=== PATIENT | male | born 1950 | race Caucasian/White ===

== ENCOUNTER 2016-10-24 09:27 | Day surgery (SDC) | payer BC ==
[2016-10-23 10:00] VITALS: BMI 26.6
[~2016-10-24 09:27] MED LIST: LACTATED RINGERS 1,000 ML IV SCH
[2016-10-24 10:01] VITALS: TEMP 97.2
[2016-10-24] MEDS ORDERED: LIDOCAINE 1% 20 ML VIAL (10MG/ML) FOR IV START INTRADERMA ONE (10:12)
[2016-10-24] MEDS ORDERED: LIDOCAINE 1% INJ 10MG/ML (20 ML MDV) ONE (10:56)
[2016-10-24] MEDS ORDERED: PROPOFOL 10 MG/ML 20 ML VIAL IV ONE (10:56)
[2016-10-24 11:36] VITALS: BP 128/79; PULSE 63; RESP 18
--- NOTE | 2016-10-24 11:56 | P.PCN ---
Date of Procedure: 10/24/16 Procedure(s) Performed: Procedure: Esophagogastroduodenoscopy and biopsy. Preoperative diagnosis: Abdominal pain and reflux. Postoperative diagnosis: 1. Small sliding hiatal hernia with no obvious esophagitis or complicated reflux disease. 2. Mild antral gastritis. 3. Multiple biopsies obtained from the duodenum, antrum and esophagus. Preparation and sedation: Was provided by anesthesia. Brief clinical history: The patient is a 66-year-old male who was evaluated in the office because of upper abdominal discomfort that he had for around 3 months. The pain would improve after eating. It was mostly felt in the hypogastric and periumbilical area. There is history of reflux and the patient was on PPI which was doubled with no improvement in his symptoms initially. For the last week or 2 he has been doing well. This evaluation was already scheduled to assess for peptic ulcer disease, complicated reflux disease or other pathology. Procedure: With the patient on his left lateral decubitus position and after informed consent and adequate sedation, I passed the Olympus-GIF 160 video upper endoscope through the cricopharyngeus down the esophagus. GE junction was around 38 cm from the incisors and there was a small around 1 cm sliding hiatal hernia. The esophagus did not show any obvious erosions, ulcers, strictures or Chester's esophagus. The endoscope was then passed into the stomach which was insufflated with air and inspected in detail including the retroflex view in the cardia. There was some mottling and erythema in the antrum but no ulcers or erosions. Pyloric channel, duodenal bulb, post bulbar area and descending duodenum appeared within normal limits. Because of his symptoms, I obtained biopsies from the duodenum, antrum and esophagus then the endoscope was withdrawn. The patient tolerated the procedure well. Plan: The patient was reassured. Will await biopsy results and make further plans based on his course and biopsy results. He will follow up with you as planned.
== END 2016-10-24 11:56 | disposition home or self-care (01) ==
LOC: ORWHC2ENDO 09:27
DX: K29.50 Unspecified chronic gastritis without bleeding (principal); K21.0 Gastro-esophageal reflux disease with esophagitis; K44.9 Diaphragmatic hernia without obstruction or gangrene; I10 Essential (primary) hypertension; E78.5 Hyperlipidemia, unspecified; Z79.899 Other long term (current) drug therapy
CPT/HCPCS: 88305; 88342; 43239; J2001; J2704

== ENCOUNTER → 2018-01-02 | Outpatient (CLI) | payer BC ==
[2018-01-02 09:51] LABS: ALT 46 U/L (21-72); AST 35 U/L (17-59); Cholesterol 172 mg/dL (<200); Creatine Kinase 35 U/L (55-170); HDL Cholesterol 58 mg/dL (40-60); LDL Cholesterol,Calculated 99 mg/dL (0-99); Triglycerides 77 mg/dL (<150)
[2018-01-02 10:37] LABS: Prostate Specific Antigen <0.10 ng/mL (0.00-4.00)
== END | disposition home or self-care (01) ==
LOC: LABWHC1 08:31
PROVIDERS: ATTEND Urology
DX: C61 Malignant neoplasm of prostate (principal); E78.5 Hyperlipidemia, unspecified
CPT/HCPCS: 36415; 80061; 82550; 84153; 84450; 84460

== ENCOUNTER 2018-11-12 12:18 | Day surgery (SDC) | payer BC ==
[2018-11-11 09:52] VITALS: BMI 26.6
[~2018-11-12 12:18] MED LIST changes: +LIDOCAINE 1% 20 ML VIAL (10MG/ML) FOR IV START INTRADERMA PRN
[2018-11-12] MEDS ORDERED: MIDAZOLAM (PF) 2 MG/2 ML VIAL IV ONE (13:25)
[2018-11-12] MEDS ORDERED: PROPOFOL 10 MG/ML 20 ML VIAL IV ONE (13:31)
[2018-11-12 13:32] VITALS: TEMP 97.5
--- NOTE | 2018-11-12 13:58 | P.PCN ---
Date of Procedure: 11/12/18 Procedure(s) Performed: Procedure: Total colonoscopy. Preoperative diagnosis: History of polyps and family history of colon cancer. Postoperative diagnosis: Mild sigmoid diverticulosis but no evidence of acute diverticulitis strictures polyps or cancer. Preparation: HalfLytely prep. Sedation: Was provided by anesthesia. Brief clinical history: The patient is a 68-year-old male who has history of polyps and family history of colon cancer. His last evaluation was in 2013. He has no bowel complaints of bleeding or anemia. Had prostate surgery since his last examination for prostate cancer. Procedure: With the patient on his left lateral decubitus position and after informed consent, the perianal area was inspected and it did not show any fissures or fistulas. There were no masses felt on digital rectal examination. The Olympus CFH 190 L video colonoscope was then inserted in the rectum in the usual fashion and advanced to the cecum. There were few diverticular orifices seen scattered in the sigmoid but I saw no evidence of acute diverticulitis, strictures, polyps or tumors. I retroflexed the endoscope in the rectum then the endoscope was withdrawn. The patient tolerated the procedure well. Plan: The patient was reassured, discussed dietary measures. We will recommend follow-up exam in 5 years. He will follow-up with you as planned.
[2018-11-12 14:09] VITALS: RESP 16
[2018-11-12 14:25] VITALS: BP 137/78; PULSE 62
== END 2018-11-12 14:32 | disposition home or self-care (01) ==
LOC: ORWHC2ENDO 12:18
DX: Z12.11 Encounter for screening for malignant neoplasm of colon (principal); K57.30 Diverticulosis of large intestine without perforation or abscess without bleeding; K21.9 Gastro-esophageal reflux disease without esophagitis; I10 Essential (primary) hypertension; E78.5 Hyperlipidemia, unspecified; F39 Unspecified mood [affective] disorder; Z86.010 Personal history of colon polyps; Z85.46 Personal history of malignant neoplasm of prostate; Z80.0 Family history of malignant neoplasm of digestive organs; Z79.82 Long term (current) use of aspirin; Z79.899 Other long term (current) drug therapy
CPT/HCPCS: G0105; J2704; J2250; 45378

== ENCOUNTER → 2019-01-06 | Outpatient (CLI) | payer BC | END | disposition home or self-care (01) | LOC: LABWHC1 09:37 | PROVIDERS: ATTEND Urology | DX: C61 Malignant neoplasm of prostate (principal) | CPT/HCPCS: 36415; 84153 ==

== ENCOUNTER → 2019-08-13 | Outpatient (CLI) | payer MEDICARE ==
--- NOTE | 2019-08-13 16:54 | MR ---
EXAMINATION TYPE: MR lumbar spine wo/w con DATE OF EXAM: 08/13/2019 COMPARISON: NONE HISTORY: 68-year-old male Low back pain Technique: Multiplanar, multisequence images of the lumbar spine were obtained before and after admin istration of 7.5 mL intravenous Gadavist gadolinium contrast. FINDINGS: Vertebral body heights are preserved. Trace grade 1 retrolisthesis at L3-L4 and L4-L5 secondary to hypertrophic facet arthropathy. No suspicious bone marrow replacement. Moderate multilevel degenerative disc disease with desiccated and mildly narrowed disks and diffuse d isc bulging. Posterior enhancing annular fissures are present at L2-L3 and L3-L4. No prevertebral or paravertebral soft tissue abnormality. Conus medullaris is normal. At T12-L1, no spinal canal and neural foraminal stenosis. At L1-L2, no spinal canal or foraminal stenosis. At L2-L3, mild bulging disc and mild facet degenerative change. There is mild impression onto the melina tral thecal sac without significant spinal canal stenosis. Minimal bilateral inferior neuroforaminal narrowing. At L3-L4, facet arthropathy with bulging disc and trace grade 1 retrolisthesis. Very mild narrowing o f the spinal canal and mild right and moderate left neuroforaminal stenosis. At L4-L5, facet arthropathy with trace grade 1 retrolisthesis and bulging disc. There is mild narrowi ng of the spinal canal with moderate bilateral neural foraminal stenosis. Disc material likely abuts the bilateral traversing L5 nerve roots. At L5-S1, bulging disc with ligamentum flavum thickening and facet arthropathy. There is moderate to severe right neural foraminal stenosis. No spinal canal stenosis. No abnormal enhancement within the spinal canal. IMPRESSION: 1. Moderate multilevel degenerative disc disease with desiccated, mildly narrowed, and bulging discs. Posterior annular fissures at L2-L3 and L3-L4. 2. Facet arthropathy with degenerative trace grade 1 retrolistheses at L3-L4 and L4-L5. 3. Mild narrowing of the spinal canal at L3-L4 and L4-L5. At L4-L5, disc material likely abuts the bi lateral traversing L5 nerve roots. 4. Additionally at L4-L5, there is moderate bilateral neuroforaminal stenoses. 5. At L5-S1, there is moderate to severe right neuroforaminal stenosis.
== END | disposition home or self-care (01) ==
LOC: RADMRIMAIN 13:23
PROVIDERS: ATTEND Orthopaedic Surgery
DX: M48.061 Spinal stenosis, lumbar region without neurogenic claudication (principal); M48.07 Spinal stenosis, lumbosacral region; M51.26 Other intervertebral disc displacement, lumbar region; M43.16 Spondylolisthesis, lumbar region; M51.36 Other intervertebral disc degeneration, lumbar region; M47.816 Spondylosis without myelopathy or radiculopathy, lumbar region
CPT/HCPCS: 72158; A9585

== ENCOUNTER → 2020-01-18 | Outpatient (CLI) | payer MEDICARE, OTHER | END | disposition home or self-care (01) | LOC: LABWHC1 13:37 | PROVIDERS: ATTEND Urology | DX: C61 Malignant neoplasm of prostate (principal) | CPT/HCPCS: 36415; 84153 ==

== ENCOUNTER 2020-03-21 09:35 | Day surgery (SDC) | payer MEDICARE, OTHER ==
[2020-03-17 15:14] VITALS: BMI 26.9
[~2020-03-21 09:35] MED LIST changes: -LIDOCAINE 1% 20 ML VIAL (10MG/ML) FOR IV START INTRADERMA PRN
[2020-03-21 09:51] VITALS: RESP 16; TEMP 97.1
[2020-03-21] MEDS ORDERED: fentaNYL (PF) 50 MCG/ML 2 ML AMP ONE (10:40)
[2020-03-21] MEDS ORDERED: MIDAZOLAM 2 MG/2 ML VIAL ONE (10:40)
[2020-03-21] MEDS ORDERED: methylPREDNISolone ACETATE 40 MG/ML 1 ML VIAL ONE (10:40)
[2020-03-21] MEDS ORDERED: IOPAMIDOL M200 10 ML VIAL ONE (10:40)
--- NOTE | 2020-03-21 10:58 | P.PCN ---
Date of Procedure: 03/21/20 Procedure(s) Performed: PREOPERATIVE DIAGNOSIS:1- Lumbar radiculopathy . 2-lumbar foraminal stenosis. 3- lumbar spondylosis with lumbar facet arthropathy POSTOPERATIVE DIAGNOSIS: Same as preoperative diagnoses. PROCEDURE 1. Transforaminal epidural steroid injection under fluoroscopic guidance at right L4-5 level. And L5-S1 levels (Fluoroscopy images stored on file in the radiology Department ) 2. Lumbar epidurogram : ANESTHESIA: Local with 1% lidocaine 3 ml , moderate sedation with intravenous Versed 1 mg and fentanyle 50 micrograms EBL: Minimal PROCEDURE INDICATION: The patient with low back pain and radiculopathy symptoms unresponsive to conservative treatment. PROCEDURE DESCRIPTION / TECHNIQUE: The patient was seen and identified in the preoperative area. Risks, benefits, complications, and alternatives were discussed with the patient. The patient agreed to proceed with the procedure and signed the consent. IV was started, and vital signs were stable. Patient was taken to the OR and time out was completed. The patient was placed in the prone position on procedure table and a pillow was placed under the abdomen to reduce lumbar lordosis. The lumbosacral area was prepped and draped in the usual sterile fashion. Critical pause was taken. Vital signs were closely monitored during the procedure. Conscious sedation was used during the procedure to decrease patient s anxiety. Using oblique fluoroscopy, the chin of the ``[place] dog at right L4-5 level was identified, and the skin and deeper tissues just below was localized with 1% lidocaine. Subsequently, a 22-gauge 3.5-inch spinal needle was advanced under a tunneled view fluoroscopic guidance just underneath the chin of the `[place] dog at the right L4-5 Under lateral fluoroscopy, the needle was then advanced to the posterior border of the interforaminal space. After negative aspiration of CSF and blood and with no paresthesias, 1 mL Isovue 200 contrast dye was injected excellent epidurogram and outlining of the nerve root Subsequently, 3 mL of block solution containing 30 mg Depo-Medrol and 2 mL of 0.9% normal saline PF was injected. Needle was removed and the same procedure was repeated at the right L5-S1 level (s). At the end of the procedure, skin was cleansed, and bandages were applied. COMPLICATIONS:none DISPOSITION / PLANS: The patient was placed in a supine position and transferred to the recovery area in a stable condition for observation. There was no evidence of lower extremity motor or sensory deficit after the procedure. Patient was discharged from the recovery room after meeting discharge criteria. Home discharge instructions were given to the patient by the staff. The patient was reexamined prior to discharge.
[2020-03-21] MEDS ORDERED: IV FLUID CONTINUATION 1,000 ML IV ONE (11:03)
[2020-03-21 11:22] VITALS: BP 127/76; PULSE 64
--- NOTE | 2020-03-21 11:33 | FL ---
EXAMINATION TYPE: FL guided pain mgmt statistic DATE OF EXAM: 03/21/2020 HISTORY: Fluoroscopy time 4 seconds of fluoroscopy provided. IMPRESSION: 1. Fluoroscopy time.
== END 2020-03-21 11:39 | disposition home or self-care (01) ==
LOC: ORPAIN 09:35
PROVIDERS: ATTEND Specialist
DX: M47.26 Other spondylosis with radiculopathy, lumbar region (principal); M48.061 Spinal stenosis, lumbar region without neurogenic claudication
CPT/HCPCS: 64483; 64484; J2250; J1030; J3010; Q9966; 99152

== ENCOUNTER → 2020-04-11 | Day surgery (SDC) | payer MEDICARE, OTHER ==
[2020-04-10 09:59] VITALS: BMI 26.6
[~2020-04-11] MED LIST changes: +DEXAMETHASONE SOD PHOSPHATE 10 MG/ML 1 ML VIAL ONE; +IOPAMIDOL M200 10 ML VIAL ONE
[2020-04-11 08:36] VITALS: TEMP 96.6
--- NOTE | 2020-04-11 08:52 | P.PCN ---
Date of Procedure: 04/11/20 Description of Procedure: PREOPERATIVE DIAGNOSIS: Lumbar radiculopathy POSTOPERATIVE DIAGNOSIS: Lumbar radiculopathy PROCEDURE 1. Transforaminal epidural steroid injection under fluoroscopic guidance L5-S1 on the right 2. Lumbar epidurogram IMAGING Fluoroscopy was used, images where saved to the medical record ANESTHESIA: Local with 1% lidocaine 5 ml PROCEDURE DESCRIPTION / TECHNIQUE: The patient was seen and identified in the preoperative area. Risks, benefits, complications, and alternatives were discussed with the patient. The patient agreed to proceed with the procedure and signed the consent, vital signs were stable prior to the procedure. Patient was taken to the OR and time out was completed. The patient was placed in the prone position on procedure table and a pillow was placed under the abdomen to reduce lumbar lordosis. The lumbosacral area was prepped and draped in the usual sterile fashion. Vital signs were closely monitored during the procedure. Conscious sedation was used. Using oblique fluoroscopy, the chin of the "[place] dog" at the pedicle and the skin and deeper tissues just below was localized with 1% lidocaine. Subsequently, a 25-gauge 3.5-inch spinal needle was advanced under a tunneled view fluoroscopic guidance just underneath the chin of the "[place] dog". Under lateral fluoroscopy, the needle was then advanced to the posterior border interforaminal space. After negative aspiration of CSF and blood and with no paresthesias, 1 mL of Omnipaque-240 contrast dye was injected excellent epidurogram. Subsequently, a solution totalling 2ml of dexamethasone and PFNS was injected after negative aspiration (total of 10mg of dexamethasone was used). The needle was removed intact. COMPLICATIONS: None DISPOSITION: The patient was placed in a supine position and transferred to the recovery area in a stable condition for observation. There was no evidence of lower extremity motor or sensory deficit after the procedure. Patient was discharged from the recovery room after meeting discharge criteria. Home discharge instructions were given to the patient by the staff. The patient was reexamined prior to discharge. Follow-up in the office as needed as pain is under much better control.
[2020-04-11 08:57] VITALS: RESP 17
[2020-04-11 09:08] VITALS: BP 110/67; PULSE 66
--- NOTE | 2020-04-11 15:00 | FL ---
EXAMINATION TYPE: FL guided pain mgmt statistic DATE OF EXAM: 04/11/2020 CLINICAL HISTORY: Low back pain. TECHNIQUE: Fluoroscopy. COMPARISON: None. FINDINGS: Fluoroscopic guidance was provided during pain relief procedure performed by Dr. Enciso . A total of 9 seconds of fluoroscopic time was utilized during the procedure and 1 spot images are a cquired. Single image acquired shows needle localization at the upper sacral level off the midline. IMPRESSION: As Above.
== END ==
LOC: ORPAIN 08:21
PROVIDERS: ATTEND Hospitalist
DX: M54.16 Radiculopathy, lumbar region (principal)
CPT/HCPCS: 64483; J1100; Q9966

== ENCOUNTER 2020-06-30 10:02 | Day surgery (SDC) | payer MEDICARE, OTHER ==
[2020-06-27 12:15] VITALS: BMI 26.6
[2020-06-30 10:58] VITALS: TEMP 97
[2020-06-30] MEDS: LACTATED RINGERS 1,000 ML IV SCH ×2 (10:59→11:02)
[2020-06-30] MEDS ORDERED: methylPREDNISolone ACETATE 40 MG/ML 1 ML VIAL ONE (11:05)
[2020-06-30] MEDS ORDERED: IOPAMIDOL M200 10 ML VIAL ONE (11:05)
--- NOTE | 2020-06-30 11:21 | P.PCN ---
Date of Procedure: 06/30/20 Procedure(s) Performed: PREOPERATIVE DIAGNOSIS:1- Lumbar radiculopathy . 2-lumbar foraminal stenosis. 3- lumbar spondylosis with lumbar facet arthropathy POSTOPERATIVE DIAGNOSIS: Same as preoperative diagnoses. PROCEDURE 1. Transforaminal epidural steroid injection under fluoroscopic guidance at right L4-5 level. And L5-S1 levels (Fluoroscopy images stored on file in the radiology Department ) 2. Lumbar epidurogram : ANESTHESIA: Local with 1% lidocaine 3 ml only EBL: Minimal PROCEDURE INDICATION: The patient with low back pain and radiculopathy symptoms unresponsive to conservative treatment. PROCEDURE DESCRIPTION / TECHNIQUE: The patient was seen and identified in the preoperative area. Risks, benefits, complications, and alternatives were discussed with the patient. The patient agreed to proceed with the procedure and signed the consent. IV was started, and vital signs were stable. Patient was taken to the OR and time out was completed. The patient was placed in the prone position on procedure table and a pillow was placed under the abdomen to reduce lumbar lordosis. The lumbosacral area was prepped and draped in the usual sterile fashion. Critical pause was taken. Vital signs were closely monitored during the procedure. Using oblique fluoroscopy, the chin of the ``[place] dog at right L4-5 level was identified, and the skin and deeper tissues just below was localized with 1% lidocaine. Subsequently, a 22-gauge 3.5-inch spinal needle was advanced under a tunneled view fluoroscopic guidance just underneath the chin of the ``[place] dog at the right L4-5 Under lateral fluoroscopy, the needle was then advanced to the posterior border of the interforaminal space. After negative aspiration of CSF and blood and with no paresthesias, 1 mL Isovue 200 contrast dye was injected excellent epidurogram and outlining of the nerve root Subsequently, 3 mL of block solution containing 40 mg Depo-Medrol and 2 mL of 0.9% normal saline PF was injected. Needle was removed and the same procedure was repeated at the right L5-S1 level (s). At the end of the procedure, skin was cleansed, and bandages were applied. COMPLICATIONS:none DISPOSITION / PLANS: The patient was placed in a supine position and transferred to the recovery area in a stable condition for observation. There was no evidence of lower extremity motor or sensory deficit after the procedure. Patient was discharged from the recovery room after meeting discharge criteria. Home discharge instructions were given to the patient by the staff. The patient was reexamined prior to discharge.
[2020-06-30] MEDS ORDERED: IV FLUID CONTINUATION 750 ML IV ONE (11:29)
[2020-06-30] MEDS ORDERED: LACTATED RINGERS 750 ML IV ONE (11:29)
[2020-06-30 11:32] VITALS: RESP 16
[2020-06-30 11:46] VITALS: BP 133/76; PULSE 67
--- NOTE | 2020-06-30 12:00 | FL ---
Fluoroscopy HISTORY: Pain 6 seconds fluoroscopy time supplied to the referring clinician. 2 intraoperative C-arm images docume nt the procedure. See dictated report from anesthesia.
== END 2020-06-30 12:09 | disposition home or self-care (01) ==
LOC: ORPAIN 10:02
PROVIDERS: ATTEND Specialist
DX: M47.26 Other spondylosis with radiculopathy, lumbar region (principal); M48.061 Spinal stenosis, lumbar region without neurogenic claudication
CPT/HCPCS: 64483; 64484; J1030; Q9966

== ENCOUNTER 2020-09-15 08:47 | Day surgery (SDC) | payer MEDICARE, OTHER ==
[2020-09-12 11:56] VITALS: BMI 26.6
[~2020-09-15 08:47] MED LIST changes: -DEXAMETHASONE SOD PHOSPHATE 10 MG/ML 1 ML VIAL ONE; -IOPAMIDOL M200 10 ML VIAL ONE
[2020-09-15 09:12] VITALS: RESP 16; TEMP 97
[2020-09-15] MEDS ORDERED: LIDOCAINE 1% (10MG/ML) FOR IV START INTRADERMA ONE (09:18)
[2020-09-15] MEDS ORDERED: ONDANSETRON 4 MG/2 ML VIAL ONE (09:22)
[2020-09-15] MEDS ORDERED: PROPOFOL 10 MG/ML 20 ML VIAL IV ONE (09:41)
--- NOTE | 2020-09-15 09:54 | P.PCN ---
Date of Procedure: 09/15/20 Procedure(s) Performed: BRIEF HISTORY: Patient is a 69-year-old, pleasant, white male scheduled for an upper endoscopy as a part of evaluation of epigastric pain for the last 2 months duration. Symptoms are worse with eating and lasts for a few minutes. He has long-standing history of GERD and has been on Prilosec 20 mg daily and recently was increased to 20 mg twice daily with no help. His and scheduled for an upper endoscopy to evaluate further. PROCEDURE PERFORMED: Esophagogastroduodenoscopy with biopsy. PREOPERATIVE DIAGNOSIS: GERD/epigastric pain. IV sedation per anesthesia. PROCEDURE: After informed consent was obtained, the patient was brought into the endoscopy unit. IV sedation was administered by Anesthesia under continuous monitoring. Initially the Olympus GIF-140 video endoscope was inserted into the mouth. Esophagus intubated without any difficulty. It was gradually advanced into the stomach and duodenum and carefully examined. The bulb and the second part of the duodenum appeared normal. The scope at this time was withdrawn to the stomach, adequately insufflated with air, and upon careful examination, mucosa of the antrum, had a 5 limited antral ulcer which was biopsied. The body, cardia and the fundus appeared normal. The scope was then withdrawn into the esophagus. The GE junction was located at 39 cm from the incisors. Small to moderate size hiatal hernia noted. There were 2 superficial erosions consistent with LA grade a reflux esophagitis. The rest of the esophagus appeared and the patient tolerated the procedure well. IMPRESSION: 1. 5 mm superficial antral ulcer. 2. 2 superficial erosions at the GE junction consistent with LA grade A reflux esophagitis. 3. Small to moderate size hiatal hernia RECOMMENDATIONS: The findings of this examination were discussed with the patient as well as his family. He was advised to follow with the biopsy results. In the meantime he will be given a trial of Carafate 1 g 4 times daily before each meal and at bedtime and he will continue with omeprazole 20 mg daily. If he has no improvement in his symptoms and for which she was advised to follow up in office.
[2020-09-15 10:29] VITALS: BP 124/81; PULSE 65
== END 2020-09-15 10:58 | disposition home or self-care (01) ==
LOC: ORWHC2ENDO 08:47
PROVIDERS: ATTEND Internal Medicine Gastroenterology
DX: K25.9 Gastric ulcer, unspecified as acute or chronic, without hemorrhage or perforation (principal); K29.50 Unspecified chronic gastritis without bleeding; K21.9 Gastro-esophageal reflux disease without esophagitis; K44.9 Diaphragmatic hernia without obstruction or gangrene; K22.10 Ulcer of esophagus without bleeding; I10 Essential (primary) hypertension; E78.5 Hyperlipidemia, unspecified; M54.9 Dorsalgia, unspecified; Z85.46 Personal history of malignant neoplasm of prostate; Z90.79 Acquired absence of other genital organ(s); Z98.49 Cataract extraction status, unspecified eye; K00.0 Anodontia; Z79.899 Other long term (current) drug therapy
CPT/HCPCS: 88305; 88342; 43239; J2405; J2704

== ENCOUNTER → 2021-01-31 | Outpatient (CLI) | payer MEDICARE, OTHER ==
[2021-01-31 18:26] LABS: ALT 32 U/L (10-49); AST 30 U/L (14-35); Chol/HDL Ratio 2.44; Cholesterol 190 mg/dL (0-200)
[2021-01-31 18:54] LABS: Prostate Specific Antigen <0.1 ng/mL (0.0-6.5)
== END | disposition home or self-care (01) ==
LOC: LABWHC1 09:03
PROVIDERS: ATTEND Internal Medicine Interventional Cardiology
DX: C61 Malignant neoplasm of prostate (principal); E78.2 Mixed hyperlipidemia
CPT/HCPCS: 36415; 80061; 84153; 84450; 84460

== ENCOUNTER → 2021-03-14 | Outpatient (CLI) | payer MEDICARE, OTHER | END | disposition home or self-care (01) | LOC: LABWHC1 16:29 | PROVIDERS: ATTEND Internal Medicine Interventional Cardiology | DX: E03.9 Hypothyroidism, unspecified (principal) | CPT/HCPCS: 36415; 84443 ==

== ENCOUNTER → 2021-04-11 | Outpatient (CLI) | payer MEDICARE, OTHER ==
--- NOTE | 2021-04-11 16:22 | MR ---
EXAMINATION TYPE: MR knee LT wo con DATE OF EXAM: 04/11/2021 COMPARISON: Plain film 02/22/2020 HISTORY: Left knee pain TECHNIQUE: Multiplanar, multisequence imaging of the left knee is performed without IV contrast. FINDINGS: MEDIAL MENISCUS: Posterior horn of the medial meniscus shows abnormal increased signal extending to t he articular surface, somewhat truncated appearance is present on sagittal image #23 and 22. Posterio r to the meniscus there are some T2 bright foci likely representing meniscal cysts or ganglion LATERAL MENISCUS: Anterior and posterior horns are intact without tear. CRUCIATE LIGAMENTS: The anterior and posterior cruciate ligaments are intact and unremarkable. COLLATERAL LIGAMENTS: Popliteus tendon shows some increased signal near its origin, there may be stra in or partial tear, no evident complete tear of the collateral ligaments. EXTENSOR MECHANISM: Intact EFFUSION: There is a small joint effusion POPLITEAL CYST: Semimembranosus gastrocnemius cyst is present measuring 1.4 x 1.3 x 3.9 cm. TRICOMPARTMENT SPACES: Maintained CARTILAGE: Grade 2 to grade III chondromalacia present in the medial compartment BONE MARROW SIGNAL: No focal abnormal marrow signal is appreciated. OTHER: Marginal spurring present at the patellofemoral joint. IMPRESSION: There is osteoarthritis with probable degenerative tear of the posterior horn medial meniscus. 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
== END | disposition home or self-care (01) ==
LOC: RADMRIMAIN 10:58
PROVIDERS: ATTEND Orthopaedic Surgery
DX: M17.12 Unilateral primary osteoarthritis, left knee (principal)

== ENCOUNTER → 2021-05-14 | Outpatient (CLI) | payer MEDICARE, OTHER ==
[2021-05-14 12:53] LABS: Basophils # (A) 0.1 k/uL (0-0.2); Basophils % (A) 1 %; Eosinophils # (A) 0.2 k/uL (0-0.7); Eosinophils % (A) 3 %; HCT 36.9 % (39.0-53.0); HGB 12.8 gm/dL (13.0-17.5); Lymphocytes # (A) 1.9 k/uL (1.0-4.8); Lymphocytes % (A) 30 %; MCH 31.9 pg (25.0-35.0); MCHC 34.6 g/dL (31.0-37.0); MCV 92.2 fL (80.0-100.0); Mean Platelet Volume 7.1; Monocytes # (A) 0.3 k/uL (0-1.0); Monocytes % (A) 6 %; Neutrophils # (A) 3.7 k/uL (1.3-7.7); Neutrophils % (A) 59 %; Platelet Count 349 k/uL (150-450); RBC 4.01 m/uL (4.30-5.90); RDW 13.3 % (11.5-15.5); WBC 6.3 k/uL (3.8-10.6)
[2021-05-14 13:06] LABS: Potassium 4.4 mmol/L (3.5-5.1)
== END | disposition home or self-care (01) ==
LOC: LABPAT 11:30
PROVIDERS: ATTEND Orthopaedic Surgery
DX: Z01.812 Encounter for preprocedural laboratory examination (principal); Z01.810 Encounter for preprocedural cardiovascular examination; M23.92 Unspecified internal derangement of left knee
CPT/HCPCS: 80051; 85025; 93005

== ENCOUNTER 2021-05-31 09:32 | Day surgery (SDC) | payer MEDICARE, OTHER ==
[2021-05-30 08:27] VITALS: BMI 26.6
--- NOTE | 2021-05-30 20:23 | HP ---
HISTORY AND PHYSICAL REASON FOR ADMISSION: Surgery scheduled for 05/31/2021 HISTORY OF PRESENT ILLNESS: Jorge Alberto Ochoa is a 70-year-old patient seen with progressive left knee pain. We discussed options for treatment. He elected to proceed with left knee arthroscopy. Consent obtained. PAST MEDICAL HISTORY: Hypertension, hyperlipidemia, gastroesophageal reflux disease. PAST SURGICAL HISTORY: Knee arthroscopy, prostatectomy. MEDICATIONS: Propranolol, losartan, amlodipine, , Mobic. ALLERGIES: None. SOCIAL HISTORY: Denies tobacco use. PHYSICAL EVALUATION OF THE LEFT KNEE: Range of motion is zero to 130. Mild effusion. Tenderness medial joint line. Positive medial Pawel's. Ligaments stable. Hip rotation without pain. Distal neurovascular exam intact. RADIOGRAPHS: Radiographs of the left knee revealed mild osteoarthritis. MRI left knee revealed medial meniscal tear and osteoarthritic changes. IMPRESSION: 1. Internal derangement of left knee with medial meniscal tear. 2. Hypertension. 3. Hyperlipidemia. PLAN: Left knee arthroscopy with partial meniscectomy and debridement. Surgery is 05/31/2021. MMODL / IJN: [id number] /
[~2021-05-31 09:32] MED LIST changes: +DEXAMETHASONE SOD PHOSPHATE 4 MG/ML 1 ML VIAL IV ONE; +HYDROmorphone 0.5 MG/0.5 ML SYRINGE IVP PRN; +LIDOCAINE 1% (10MG/ML) FOR IV START INTRADERMA PRN; +MIDAZOLAM 2 MG/2 ML VIAL IV PRN; +ONDANSETRON 4 MG/2 ML VIAL IVP ONE
[2021-05-31] MEDS ORDERED: MIDAZOLAM 2 MG/2 ML VIAL IVP ONE (10:37)
[2021-05-31 10:38] LABS: Glucose,Whole Blood 98 mg/dL (75-99)
[2021-05-31] MEDS ORDERED: PROPOFOL 10 MG/ML 20 ML VIAL IV ONE (11:59)
[2021-05-31] MEDS ORDERED: KETOROLAC 15 MG/ML 1 ML VIAL ONE (11:59)
[2021-05-31] MEDS ORDERED: ePHEDrine 50 MG/ML 1 ML AMP ONE (11:59)
[2021-05-31] MEDS ORDERED: LIDOCAINE 1% INJ 10MG/ML (20 ML MDV) ONE (11:59)
[2021-05-31] MEDS ORDERED: .fentaNYL (PF) 50 MCG/ML 2 ML AMP ONE (11:59)
[2021-05-31] MEDS ORDERED: BUPIVACAINE (PF) 0.25% 30 ML VIAL SQ ONE ×2 (12:05→12:29)
--- NOTE | 2021-05-31 12:42 | P.OP ---
Date of Procedure: 05/31/21 Preoperative Diagnosis: Internal derangement left knee Postoperative Diagnosis: 1. Tear medial meniscus left knee 2. Reactive synovitis medial, lateral and suprapatellar compartments left knee Procedure(s) Performed: 1. Arthroscopic partial medial meniscectomy left knee 2. Arthroscopic partial synovectomy medial, lateral and suprapatellar compartments left knee Anesthesia: MADDY, local Surgeon: Cassius Guzman Estimated Blood Loss (ml): 6 Pathology: none sent Condition: stable Disposition: PACU Indications for Procedure: 70-year-old patient seen with progressive left knee pain. After having treatment options discussed, he elected to proceed with arthroscopy. Operative Findings: see description of procedure Description of Procedure: Patient was taken to the operative suite. Patient underwent a general anestheti c by the department of anesthesia. Patient was given preoperative antibiotics. The left lower extremity was placed in a well-padded arthroscopic leg mills. The left leg was prepped and draped in the normal sterile orthopedic fashion. A lateral parapatellar and suprapatellar incision was made. Trochars were inserted. Arthroscopy was initiated. Suprapatellar pouch revealed diffuse thick reactive synovitis. The patellofemoral joint appeared to articulate congruently. There was grade 1 chondromalacia of the patella with no tears present. The scope was guided into the medial gutter. No loose bodies or plica were identified. The scope was then guided into the medial compartment. A medial parapatellar incision was made. Trocar inserted followed by probe. There was a complex tear involving the posterior horn of the medial meniscus. There were grade 1 chondromalacia changes medial compartment with no tears. There was thick reactive synovitis anteriorly. I performed a partial medial meniscectomy getting down to stable meniscal tissue. I performed a partial synovectomy decompressing the reactive synovitis. The shaver was removed. The residual meniscus was stable. There was good decompression of synovitis. Scope and probe were then guided into the intercondylar notch. Cruciates were identified, probed and found to be stable. The scope and probe were then guided into lateral compartment. Lateral meniscus was probed and was found to be stable. There was no significant chondromalacia present. There was thick reactive synovitis anteriorly. I performed a partial synovectomy. Shaver was removed. There was good decompression of the synovitis. The scope was in guided back into the suprapatellar compartment. I introduced a motorized shaver into the super patellar compartment. I debrided some piecemeal fragments of meniscus I encountered. I performed a partial synovectomy. Shaver was removed. There was good decompression of synovitis. I now took one more look around the entire knee, no residual debris. Instruments were now removed from the joint. The joint was infiltrated with .25% Marcaine. Steri-Strips were applied to the portal sites. Sterile dressings were applied. The patient was placed into a THAD hose. No tourniquet was utilized. The patient was awakened, transferred to a bed and taken to recovery stable satisfactory condition.
[2021-05-31 12:54] VITALS: TEMP 97
[2021-05-31 12:56] VITALS: RESP 16
[2021-05-31 13:59] VITALS: BP 145/73; PULSE 78
== END 2021-05-31 14:24 | disposition home or self-care (01) ==
LOC: OR 09:32
PROVIDERS: ATTEND Orthopaedic Surgery
DX: M23.304 Other meniscus derangements, unspecified medial meniscus, left knee (principal); I10 Essential (primary) hypertension; E78.5 Hyperlipidemia, unspecified; K21.9 Gastro-esophageal reflux disease without esophagitis; F41.9 Anxiety disorder, unspecified; Z85.46 Personal history of malignant neoplasm of prostate; Z79.899 Other long term (current) drug therapy
CPT/HCPCS: 29881; 29876; J2250; J1100; J0690; J2405; J2001; J3010; J1885; J2704

== ENCOUNTER → 2021-12-11 | Outpatient (CLI) | payer MEDICARE, OTHER ==
--- NOTE | 2021-12-12 04:55 | MR ---
EXAMINATION TYPE: MR lumbar spine wo con DATE OF EXAM: 12/11/2021 COMPARISON: 08/13/2019 HISTORY: Lower back pain x 2 months. Multiplanar multiecho imaging of the lumbar spine with no contrast. The lumbar vertebrae have normal alignment. There is mild degenerative disc space narrowing throughou t the lumbar spine. No compression fracture. No focal bone destruction. There is mild posterior disc bulging and herniation from L3 to S1. There is developmentally adequate spinal canal and not a signif icant spinal stenosis. No paraspinal mass. There is some right-sided L5-S1 neural foraminal narrowing due to disc space narrowing and facet arthropathy. IMPRESSION: Multilevel spondylotic changes and posterior disc bulging and mild herniation without significant spi nal stenosis.
== END | disposition home or self-care (01) ==
LOC: RADMRIMAIN 11:47
PROVIDERS: ATTEND Orthopaedic Surgery
DX: M51.36 Other intervertebral disc degeneration, lumbar region (principal); M48.20 Kissing spine, site unspecified
CPT/HCPCS: 72148

== ENCOUNTER → 2022-02-15 | Outpatient (CLI) | payer MEDICARE, OTHER | END | disposition home or self-care (01) | LOC: LABWHC1 12:03 | PROVIDERS: ATTEND Urology | DX: C61 Malignant neoplasm of prostate (principal) | CPT/HCPCS: 36415; 84153 ==

== ENCOUNTER → 2022-02-21 | Outpatient (CLI) | payer MEDICARE, OTHER ==
[2022-02-21 08:34] VITALS: BP 142/84; PULSE 63; RESP 18; TEMP 98.6
--- NOTE | 2022-02-21 08:48 | P.PN ---
Subjective Progress Note Date: 02/21/22 This is a 71-year-old gentleman with history of chronic lower back pain and recent fall which resulted in an exacerbation of his back pain with radiation to the right hip however he started to feel numbness in the leg all the way down to his foot both on the medial and lateral aspect of the right foot. The patient denies any weakness in the right leg and denies any bowel or bladder dysfunction. He gets worse with ambulation and improves by sitting down for 20 minutes or so. He did receive transforaminal epidural steroid injection last year which gave him good relief of pain at that point. His back to his current pain is very similar to his chronic one however it is more intense and associated with numbness in the right leg. He received an MRI of the lumbar spine which showed severe foraminal stenosis at the L4 5 and L5-S1 level on the right side. Patient denies new-onset weakness, bowel/bladder incontinence, or any other signs or symptoms of cauda equina syndrome. There are no signs of acute intoxication, and no indications of medication diversion or overuse. In addition to above, 13-point review of systems is also negative for chest pain, shortness of breath, changes in vision, changes in hearing, new onset weakness, abdominal pain, diarrhea, extreme fatigue, malaise, fever, skin changes, homicidal or suicidal ideation, or bowel or bladder incontinence. Vital Signs: Reviewed in EMR Gen: AAOx3, NAD HEENT: PERRLA,hearing grossly normal Pulm: resp unlabored Neck: supple, trachea midline Neuro exam of the lower extremities: Absent reflexes in the right leg, normal left knee reflex, absent ankle reflexes on the left side Straight leg raising test: Negative bilaterally Calvin's test: Range of motion of the lumbar spine: Facet loading test: Tenderness in the paravertebral musculature: Is to the right side Normal dorsalis pedis pulse in the right foot Neuro: CN II-XII grossly intact, Imaging: Reviewed in EMR/chart Assessment: Right lumbar radiculopathy due to neural foraminal stenosis at the L4 5 and L5- S1 levels on the right side Plan: 1. Explanation: When patients on opioids, opioid and psychological risk scores were reviewed. Diagnoses, prognoses, and multiple treatment options including but not limited to physical therapy, interventional therapies, adjuvant medical therapies, narcotic medication therapies, and surgery were discussed with the patient and all questions were answered to the patient's satisfaction. 2. Opioid agreement:When patients are prescribed opoids through our clinic, opioid agreement is signed with the patient and the patient is warned not to use opioids while driving or before driving and not to combine opioids with benzodiazepines or alcohol. 3. Counseling: When patient is smoking or obese, the patient was counseled extensively on SMOKING CESSATION, BODY MASS INDEX, EXERCISE. Specifically, the patient was instructed regarding the importance of smoking cessation, obesity, and exercise in the context of both chronic pain and overall health. 4. Procedures: Visual for transforaminal epidural steroid injection at the L4 5 level on the right side under fluoroscopic guidance 5. Consultations: None 6. Investigations: None 7. Medications: None prescribed today 8. Disposition: Proceed with the above-mentioned procedure as soon as possible 9. Maps were reviewed and were appropriate. Objective - Vital Signs Vital signs: Vital Signs Temp 98.6 F 02/21/22 08:24 Pulse 63 02/21/22 08:24 Resp 18 02/21/22 08:24 BP 142/84 02/21/22 08:24 Pulse Ox 98 02/21/22 08:24 FiO2 Intake & Output 02/20/22 02/21/22 02/21/22 18:59 06:59 18:59 Weight 83.915 kg
== END ==
LOC: PNWHC3 08:08
PROVIDERS: ATTEND Anesthesiology
DX: M51.16 Intervertebral disc disorders with radiculopathy, lumbar region (principal); M48.061 Spinal stenosis, lumbar region without neurogenic claudication
CPT/HCPCS: 99211

== ENCOUNTER 2022-03-21 09:14 | Day surgery (SDC) | payer MEDICARE, OTHER ==
[2022-03-19 15:46] VITALS: BMI 26.7
[2022-03-21 10:08] VITALS: TEMP 96.7
[2022-03-21] MEDS ORDERED: LIDOCAINE 1% (10MG/ML) FOR IV START INTRADERMA ONE (10:12)
[2022-03-21] MEDS ORDERED: LACTATED RINGERS 1,000 ML IV ONE (10:12)
[2022-03-21] MEDS ORDERED: MIDAZOLAM 2 MG/2 ML VIAL ONE (10:27)
[2022-03-21] MEDS ORDERED: methylPREDNISolone ACETATE 40 MG/ML 1 ML VIAL ONE (10:27)
[2022-03-21] MEDS ORDERED: fentaNYL (PF) 50 MCG/ML 2 ML AMP ONE (10:27)
[2022-03-21] MEDS ORDERED: IOPAMIDOL M200 10 ML VIAL ONE (10:27)
--- NOTE | 2022-03-21 10:41 | P.PCN ---
Date of Procedure: 03/21/22 Procedure(s) Performed: PREOPERATIVE DIAGNOSIS:1- Lumbar radiculopathy . 2-lumbar foraminal stenosis. 3- lumbar spondylosis with lumbar facet arthropathy POSTOPERATIVE DIAGNOSIS: Same as preoperative diagnoses. PROCEDURE 1. Transforaminal epidural steroid injection under fluoroscopic guidance at right L4-5 level. (Fluoroscopy images stored on file in the radiology Department ) 2. Lumbar epidurogram : ANESTHESIA: Moderate sedation with Versed 1 mg, fentanyl 50 g Sedation starts at 1029. The sedation finished at 1038 EBL: Minimal PROCEDURE INDICATION: The patient with low back pain and radiculopathy symptoms unresponsive to conservative treatment. PROCEDURE DESCRIPTION / TECHNIQUE: The patient was seen and identified in the preoperative area. Risks, benefits, complications, and alternatives were discussed with the patient. The patient agreed to proceed with the procedure and signed the consent. IV was started, and vital signs were stable. Patient was taken to the OR and time out was completed. The patient was placed in the prone position on procedure table and a pillow was placed under the abdomen to reduce lumbar lordosis. The lumbosacral area was prepped and draped in the usual sterile fashion. Critical pause was taken. Vital signs were closely monitored during the procedure. Sedation was given to decrese the patient's anxiety Using oblique fluoroscopy, the chin of the ``[place] dog at right L4-5 level was identified, and the skin and deeper tissues just below was localized with 1% lidocaine. Subsequently, a 22-gauge 3.5-inch spinal needle was advanced under a tunneled view fluoroscopic guidance just underneath the chin of the ``[place] dog at the right L4-5 Under lateral fluoroscopy, the needle was then advanced to the posterior border of the interforaminal space. After negative aspiration of CSF and blood and with no paresthesias, 1 mL Isovue 200 contrast dye was injected excellent epidurogram and outlining of the nerve root Subsequently, 3 mL of block solution containing 40 mg Depo-Medrol and 2 mL of 0.9% normal yarelis ine PF was injected. Needle was removed . At the end of the procedure, skin was cleansed, and bandages were applied. COMPLICATIONS:none DISPOSITION / PLANS: The patient was placed in a supine position and transferred to the recovery area in a stable condition for observation. There was no evidence of lower extremity motor or sensory deficit after the procedure. Patient was discharged from the recovery room after meeting discharge criteria. Home discharge instructions were given to the patient by the staff. The patient was reexamined prior to discharge.
[2022-03-21] MEDS ORDERED: IV FLUID CONTINUATION 800 ML IV ONE (10:45)
[2022-03-21 10:48] VITALS: RESP 16
[2022-03-21 11:01] VITALS: BP 125/68; PULSE 69
--- NOTE | 2022-03-21 11:30 | FL ---
EXAMINATION TYPE: FL guided pain mgmt statistic DATE OF EXAM: 03/21/2022 HISTORY: Fluoroscopy time 5 seconds of fluoroscopy provided. IMPRESSION: 1. Fluoroscopy time.
== END 2022-03-21 11:15 | disposition home or self-care (01) ==
LOC: ORPAIN 09:14
PROVIDERS: ATTEND Specialist
DX: M47.26 Other spondylosis with radiculopathy, lumbar region (principal); M48.061 Spinal stenosis, lumbar region without neurogenic claudication
CPT/HCPCS: 64483; J2250; J1030; J3010; Q9966

== ENCOUNTER → 2022-04-10 | Outpatient (CLI) | payer MEDICARE, OTHER ==
[2022-04-10 10:50] VITALS: BP 149/85; PULSE 61; RESP 18; TEMP 98
--- NOTE | 2022-04-10 14:26 | P.PAINPG ---
PQRS Measure Charge Sheet Comment: A 71 yr old male with a history of severe and chronic low back pain secondary to lumbar degenerative disc diseases and lumbar spondylosis with facet arthropathy without myelopathy presents today for evaluation s/p R TFESI L4-L5. Pt states he experienced 10% pain relief x 3 wks s/p procedure. Pain level is currently at 0/10 in intensity w sitting, intermittent, localized in R hip, sore in character w shooting towards R foot numbness. Pain is provoked to 8/10 by standing/ walking. Pain is alleviated with PT x 6 wks in November 2021, medications (Ibuprofen), sitting, laying supine, repositioning and rest. Admits he fell of a ladder in December 2021 which provoked R foot numbness. Interventional pain procedures completed include R TFESI L4-L5 x2 Patient is currently on Ibuprofen Patient denies any side effects of the medication(s), denies excessive drowsiness or sleepiness, denies suicidal ideation and reports that the current pain medication is helping to control the pain and improve activities of daily living. Patient denies any motor or sensory deficits. Patient denies any fever or night sweats, denies any change in the bowel movements or urination. Physical Examination: -Constitutional: Cooperative. Not in acute distress . - Neurologic: Cranial nerve II to XII intact. No focal neurological de ficits. - Psychatric: Alert & oriented x 3. Matching mood & appropriate affect. Judgment and insight intact. - Musculoskeletal: Cervical spine: Muscle bulk/ tone/ strength in the bilateral upper extremities normal Vertebral body tenderness to palpation over Spurling test positive Distraction test positive Facet loading test positive Thoracic spine Muscle bulk / tone/ strength in the bilateral paraspinal muscles normal Vertebral body tender to palpation over Facet loading test positive Lumbar spine: Motor bulk/ tone/ strength lower extremities , thigh and legs : 5/5 Deep tendon reflexes : Normal Knee Jerk. Normal Ankle Jerk . Vertebral body tenderness to palpation over L5 Lumbar Facet Loading Test positive Straight Leg Raise: positive at 30 degrees right side/ left side Gaenslen's Test positive Sacral spine : Severe tenderness over the Sacroiliac joint: right side / left side Range of motion: Flexion of the lumbar spine <60 degrees Range of motion: Extension of the lumbar spine <20 degrees Gaenslen's Test positive on R Calvin's Test positive Eris test: positive right side / left side Thigh Thrust Test Sacral Thrust Test Assessment and plan: Chronic low back pain secondary to lumbar degenerative disc disease , lumbar spondylosis with facet arthropathy without myelopathy Recommendation of chiropractic treatments QWeek x 8 wks Dx M51.36. May need additional treatments if indicated. Pt may return to this clinic within 8 wks or as needed. Risks, benefits of procedure discussed and pt verbalized understanding. Denies anticoagulant use or medical history of diabetes. All patient questions answered I have spent less than 30 minutes on patient care today. Dr Johnson was available by phone for the evaluation of this patient. The time was used to review the medical records including relevant urine studies and Prescription history (MAPs), review of the available imaging, evaluation and examination of the patient, coordination of care with the medical staff and if applicable referring physicians, as well as creation of the medical record PQRS Narrative: Smoking Status Never smoker Hx Alcohol Use (MH) Yes: SEVERAL DRINKS DAILY Home Medications: Ambulatory Orders Omeprazole 20 mg PO QAM 11/03/13 amLODIPine [Norvasc] 10 mg PO QAM 11/03/13 ALPRAZolam [Xanax] 0.25 mg PO HS PRN 02/09/15 Propranolol HCl 10 mg PO BID PRN 02/09/15 Multivitamins, Thera [Multivitamin (formulary)] 1 tab PO HS 03/17/20 Atorvastatin [Lipitor] 40 mg PO HS 05/30/21 Cholecalciferol [Vitamin D3 (125 Mcg = 5000 Iu)] 125 mcg PO DAILY 05/30/21 Vitamin B Complex 1 each PO DAILY 05/30/21 Controlled Substance Measures - Controlled Substance Measures Is patient prescribed a controlled substance at discharge?: No
== END | disposition home or self-care (01) ==
LOC: PNWHC3 10:15
PROVIDERS: ATTEND Specialist
DX: M47.896 Other spondylosis, lumbar region (principal); M51.36 Other intervertebral disc degeneration, lumbar region
CPT/HCPCS: 99211

== ENCOUNTER → 2022-06-05 | Outpatient (CLI) | payer MEDICARE, OTHER ==
[2022-06-05 10:55] VITALS: BP 147/97; PULSE 74; RESP 18; TEMP 97.8
--- NOTE | 2022-06-05 14:25 | P.PAINPG ---
PQRS Measure Charge Sheet Comment: A 71 yr old male with a history of severe and chronic low back pain secondary to lumbar DDD and spondylosis with facet arthropathy without myelopathy presents today for LBP evaluation. Pain level is currently at 7 /10 in intensity w provocation, constant, localized in the mid to lower lumbar spine, sharp in character w shooting towards the BL buttocks and hips. Pain is provoked by bending, lifting. Pain is alleviated with chiropractic treatments x 8 wks in May 2022, PT 3 yrs ago and again x 6 wks in Mar 2022, massage therapy bi weekly, injections in the past, heat, repositioning and rest. Interventional pain procedures completed include TRACEE L4-L5 x1, R TFESI L4-L5 x1 Patient is currently on Denies Patient denies any side effects of the medication(s), denies excessive drowsiness or sleepiness, denies suicidal ideation and reports that the current pain medication is helping to control the pain and improve activities of daily living. Patient denies any motor or sensory deficits. Patient denies any fever or night sweats, denies any change in the bowel movements or urination. Physical Examination: -Constitutional: Cooperative. Not in acute distress . - Neurologic: Cranial nerve II to XII intact. No focal neurological deficits. - Psychatric: Alert & oriented x 3. Matching mood & appropriate affect. Judgment and insight intact. - Musculoskeletal: Cervical spine: Muscle bulk/ tone/ strength in the bilateral upper extremities normal Vertebral body tenderness to palpation over Spurling test positive Distraction test positive Facet loading test positive Thoracic spine Muscle bulk / tone/ strength in the bilateral paraspinal muscles normal Vertebral body tender to palpation over Facet loading test positive Lumbar spine: Motor bulk/ tone/ strength lower extremities , thigh and legs : 5/5 Deep tendon reflexes : Normal Knee Jerk. Normal Ankle Jerk . Vertebral body tenderness to palpation over L4 Lumbar Facet Loading Test positive Straight Leg Raise: positive at 30 degrees right side/ left side Gaenslen's Test positive Sacral spine : Severe tenderness over the Sacroiliac joint: right side / left side Range of motion: Flexion of the lumbar spine <60 degrees Range of motion: Extension of the lumbar spine <20 degrees Gaenslen's Test positive Eris test: positive right side / left side Thigh Thrust Test Sacral Thrust Test Assessment and plan: Chronic low back pain secondary to lumbar degenerative disc disease, spondylosis with facet arthropathy without myelopathy Recommendation of TRACEE L4-L5. May need a series, up to 4 wihtin a 12 mo period, for optimal pain relief. Risks, benefits of procedure discussed and pt verbalized understanding. Denies anticoagulant use or medical history of walter willson. All patient questions answered I have spent less than 30 minutes on patient care today. Dr Johnson was available by phone for the evaluation of this patient. The time was used to r eview the medical records including relevant urine studies and Prescription history (MAPs), review of the available imaging, evaluation and examination of the patient, coordination of care with the medical staff and if applicable referring physicians, as well as creation of the medical record PQRS Narrative: Smoking Status Never smoker Hx Alcohol Use (MH) Yes: SEVERAL DRINKS DAILY Home Medications: Ambulatory Orders Omeprazole 20 mg PO QAM 11/03/13 amLODIPine [Norvasc] 10 mg PO QAM 11/03/13 ALPRAZolam [Xanax] 0.25 mg PO HS PRN 02/09/15 Propranolol HCl 10 mg PO BID PRN 02/09/15 Multivitamins, Thera [Multivitamin (formulary)] 1 tab PO HS 03/17/20 Atorvastatin [Lipitor] 40 mg PO HS 05/30/21 Cholecalciferol [Vitamin D3 (125 Mcg = 5000 Iu)] 125 mcg PO DAILY 05/30/21 Vitamin B Complex 1 each PO DAILY 05/30/21 Controlled Substance Measures - Controlled Substance Measures Is patient prescribed a controlled substance at discharge?: No
== END ==
LOC: PNWHC3 10:16
PROVIDERS: ATTEND Specialist
DX: M47.816 Spondylosis without myelopathy or radiculopathy, lumbar region (principal); M51.36 Other intervertebral disc degeneration, lumbar region
CPT/HCPCS: 99211

== ENCOUNTER 2022-06-26 14:50 | Inpatient (IN) | payer MEDICARE, OTHER ==
--- NOTE | 2022-06-26 15:51 | ED ---
Abdominal Pain HPI - General Chief Complaint: Abdominal Pain Stated Complaint: ABD pain Time Seen by Provider: 06/26/22 15:44 Source: patient, RN notes reviewed Mode of arrival: ambulatory - History of Present Illness Initial Comments: Nontoxic appearing 71-year-old male presents ambulatory to the emergency room with complaints of abdominal pain and bloating for the past 24 hours. Patient states in the past he had a partial small bowel obstruction that resolved on its own. His primary care doctor told him if this recurs he should be evaluated again. Patient does have a history of prostate cancer and had surgery in 2014. Denies any nausea vomiting. Did have a small bowel movement today. Normal bowel movement yesterday. MD Complaint: abdominal pain -: days(s) (1) Location: diffuse Severity scale (1-10): 4 Quality: fullness Consistency: constant - Related Data Home Medications Medication Instructions Recorded Confirmed Omeprazole 20 mg PO HS 11/03/13 06/26/22 amLODIPine [Norvasc] 10 mg PO DAILY 11/03/13 06/26/22 ALPRAZolam [Xanax] 0.25 mg PO HS 02/09/15 06/26/22 Atorvastatin [Lipitor] 40 mg PO HS 05/30/21 06/26/22 ALPRAZolam [Xanax] 0.25 mg PO BID PRN 06/26/22 06/26/22 Docusate [Colace] 100 mg PO PC-BID@1200,1700 06/26/22 06/26/22 Allergies Allergy/AdvReac Type Severity Reaction Status Date / Time No Known Allergies Allergy Verified 06/27/22 10:38 Review of Systems ROS Statement: Those systems with pertinent positive or pertinent negative responses have been documented in the HPI. ROS Other: All systems not noted in ROS Statement are negative. Past Medical History Past Medical History: Cancer, GERD/Reflux, Hyperlipidemia, Hypertension, Prostate Disorder Additional Past Medical History / Comment(s): hx. Prostate Cancer, palpitations occ, urinary leakage, "stomach pain", constipation, hx "minor diverticulitis", R hip back. Fell off a ladder in December 2021. History of Any Multi-Drug Resistant Organisms: None Reported Past Surgical History: Orthopedic Surgery, Prostate Surgery Additional Past Surgical History / Comment(s): ARTHROSCOPY ISAK. KNEES, Hemorrhoidectomy, isak cataracts, PAIN CLINIC PROCEDURE, Prostate surgery 2005. Past Anesthesia/Blood Transfusion Reactions: No Reported Reaction Additional Past Anesthesia/Blood Transfusion Reaction / Comment(s): . Past Psychological History: No Psychological Hx Reported Smoking Status: Never smoker Past Alcohol Use History: Daily Past Drug Use History: None Reported - Past Family History Mother Family Medical History: Cancer Additional Family Medical History / Comment(s): lung Course Vital Signs 06/26/22 06/26/22 06/26/22 15:43 17:58 19:00 Temperature 97.9 F 98.5 F Pulse Rate 84 76 64 Respiratory 16 16 16 Rate Blood Pressure 115/83 132/89 142/80 O2 Sat by Pulse 97 95 97 Oximetry Medical Decision Making - Lab Data Result diagrams: 06/26/22 17:50 06/26/22 17:50 Lab Results 06/26/22 06/26/22 06/26/22 Range/Units 17:50 17:50 17:50 WBC 9.2 (3.8-10.6) k/uL RBC 4.74 (4.30-5.90) m/uL Hgb 14.4 (13.0-17.5) gm/dL Hct 42.7 (39.0-53.0) % MCV 90.1 (80.0-100.0) fL MCH 30.4 (25.0-35.0) pg MCHC 33.7 (31.0-37.0) g/dL RDW 12.5 (11.5-15.5) % Plt Count 333 (150-450) k/uL MPV 7.6 Neutrophils % 68 % Lymphocytes % 21 % Monocytes % 5 % Eosinophils % 3 % Basophils % 1 % Neutrophils # 6.3 (1.3-7.7) k/uL Lymphocytes # 2.0 (1.0-4.8) k/uL Monocytes # 0.5 (0-1.0) k/uL Eosinophils # 0.3 (0-0.7) k/uL Basophils # 0.1 (0-0.2) k/uL Sodium 141 (137-145) mmol/L Potassium 4.1 (3.5-5.1) mmol/L Chloride 105 (98-107) mmol/L Carbon Dioxide 28 (22-30) mmol/L Anion Gap 8 mmol/L BUN 13 (9-20) mg/dL Creatinine 0.94 (0.66-1.25) mg/dL Est GFR (CKD-EPI)AfAm >90 (>60 ml/min/1.73 sqM) Est GFR (CKD-EPI)NonAf 81 (>60 ml/min/1.73 sqM) Glucose 103 H (74-99) mg/dL Plasma Lactic Acid Júnior 0.8 (0.7-2.0) mmol/L Calcium 9.8 (8.4-10.2) mg/dL Total Bilirubin 0.5 (0.2-1.3) mg/dL AST 32 (17-59) U/L ALT 37 (4-49) U/L Alkaline Phosphatase 71 (38-126) U/L Total Protein 7.3 (6.3-8.2) g/dL Albumin 4.4 (3.5-5.0) g/dL Lipase 52 (23-300) U/L Disposition Disposition: ADMITTED IP TO THIS HOSP
--- NOTE | 2022-06-26 16:29 | XR ---
EXAMINATION TYPE: XR KUB DATE OF EXAM: 06/26/2022 4:21 PM INDICATION: Patient age:Male; 71 years old; Reason for study: pain r/o obstruction; PHH. COMPARISON: None. TECHNIQUE: One radiographic view of the abdomen was obtained. FINDINGS: Dextroscoliosis apex L4. The bowel gas pattern is nonspecific without dilated loops of smal l or large bowel. There is no evidence for organomegaly or pneumoperitoneum. The osseous structures are intact. No abnormal calcifications are present. Fecal material and gas are demonstrated througho ut the colon and rectum. IMPRESSION: Nonspecific bowel gas pattern without radiographic evidence for acute process.
[2022-06-26 18:04] LABS: Basophils # (A) 0.1 k/uL (0-0.2); Basophils % (A) 1 %; Eosinophils # (A) 0.3 k/uL (0-0.7); Eosinophils % (A) 3 %; HCT 42.7 % (39.0-53.0); HGB 14.4 gm/dL (13.0-17.5); Lymphocytes % (A) 21 %; MCH 30.4 pg (25.0-35.0); MCHC 33.7 g/dL (31.0-37.0); MCV 90.1 fL (80.0-100.0); Mean Platelet Volume 7.6; Monocytes # (A) 0.5 k/uL (0-1.0); Monocytes % (A) 5 %; Neutrophils # (A) 6.3 k/uL (1.3-7.7); Neutrophils % (A) 68 %; Platelet Count 333 k/uL (150-450); RBC 4.74 m/uL (4.30-5.90); RDW 12.5 % (11.5-15.5); WBC 9.2 k/uL (3.8-10.6)
[2022-06-26 18:13] LABS: ALT 37 U/L (4-49); AST 32 U/L (17-59); African American GFR (CKD) >90 (>60 ml/min/1.73 sqM); Albumin 4.4 g/dL (3.5-5.0); Alkaline Phosphatase 71 U/L (38-126); Anion Gap 8 mmol/L; Blood Urea Nitrogen 13 mg/dL (9-20); Calcium 9.8 mg/dL (8.4-10.2); Carbon Dioxide 28 mmol/L (22-30); Chloride 105 mmol/L (98-107); Glucose 103 mg/dL (74-99); Lipase 52 U/L (23-300); Non-African American GFR(CKD) 81 (>60 ml/min/1.73 sqM); Potassium 4.1 mmol/L (3.5-5.1); Sodium 141 mmol/L (137-145); Total Bilirubin 0.5 mg/dL (0.2-1.3); Total Protein 7.3 g/dL (6.3-8.2)
--- NOTE | 2022-06-26 18:53 | CT ---
EXAMINATION TYPE: CT abdomen pelvis w con CT DLP: 1206.2 mGycm, Automated exposure control for dose reduction was used. DATE OF EXAM: 06/26/2022 6:47 PM COMPARISON: CT abdomen pelvis most recent from 12/27/2014 CT pelvis. CLINICAL INDICATION:Male, 71 years old with history of RLQ pain; RLQ pain TECHNIQUE: Axial CT of the abdomen and pelvis. Sagittal and coronal reformats were created on a [employer] workstation. Contrast used:100 mL of Isovue 300 with IV Contrast, Oral contrast used: without Oral Contrast FINDINGS: LOWER CHEST: Heart is mildly enlarged for size. Streaky atelectasis changes suspected in the lung bas es. ABDOMEN LIVER: Unremarkable GALLBLADDER AND BILE DUCTS: Unremarkable. PANCREAS: Unremarkable. SPLEEN: Unremarkable. ADRENAL GLANDS: Unremarkable. KIDNEYS AND URETERS: 4 mm nonobstructive calculus on the left. No evidence of right renal calculus or bilateral hydroureter nephrosis. PELVIS BLADDER: Unremarkable REPRODUCTIVE: Unremarkable. ABDOMEN & PELVIS STOMACH AND BOWEL: No evidence of bowel obstruction. There is a short appendix measuring up to 2.0 cm in length which is inflamed and thickened up to 13 mm with the surrounding fat stranding changes. PERITONEUM/RETROPERITONEUM: No evidence of pneumoperitoneum or free fluid. . VASCULATURE: No evidence of aortic aneurysm. Atherosclerosis of the arterial vasculature. MUSCULOSKELETAL: No acute osseous abnormalities, multilevel disc degeneration changes throughout the spine. LYMPH NODES: No gross evidence for lymphadenopathy. SOFT TISSUE/ABDOMINAL WALL: Fat-containing umbilical hernia. IMPRESSION: 1. Acute uncomplicated appendicitis. 2. Nonobstructive 4 mm left renal calculus.
[2022-06-26] MEDS ORDERED: PIPERACILLIN-TAZOBACTAM 3.375 GM in SODIUM CHLORIDE 0.9% 100 ML IVPB STA (19:19)
[2022-06-26] MEDS ORDERED: NALOXONE 0.4 MG/ML 1 ML VIAL IV PRN (19:27)
[2022-06-26] MEDS ORDERED: PROPRANOLOL 10 MG TAB PO PRN (19:28)
[2022-06-26] MEDS: SODIUM CHLORIDE 0.9% 1,000 ML IV SCH (19:55)
[2022-06-26] MEDS: ATORVASTATIN 40 MG TAB PO SCH (21:58)
[2022-06-26] MEDS: MULTIVITAMINS, THERA 1 EACH TAB PO SCH (21:58)
[2022-06-26] MEDS: ALPRAZolam 0.25 MG TAB PO PRN (23:08)
[2022-06-27] MEDS: PIPERACILLIN-TAZOBACTAM 3.375 GM in SODIUM CHLORIDE 0.9% 100 ML IVPB SCH ×2 (08:04→17:26)
[2022-06-27] MEDS: PANTOPRAZOLE 40 MG TABLET PO SCH (08:04)
[2022-06-27] MEDS: CHOLECALCIFEROL 125 MCG (5000 IU) TABLET PO SCH (08:04)
[2022-06-27] MEDS: amLODIPine 10 MG TAB PO SCH (08:04)
[2022-06-27] MEDS: SODIUM CHLORIDE 0.9% 1,000 ML IV SCH (08:52)
[2022-06-27] MEDS ORDERED: NON FORMULARY DRUG (Vitamin B Complex [Vitamin B Complex] 1 EACH Capsule) PO SCH (09:00)
[2022-06-27] MEDS ORDERED: IV FLUID CONTINUATION 300 ML IV ONE (10:35)
[2022-06-27] MEDS ORDERED: HEPARIN SODIUM,PORCINE/PF 5,000 UNIT/0.5 ML SYRINGE SQ ONE (11:11)
[2022-06-27] MEDS ORDERED: HEPARIN SODIUM,PORCINE 5,000 UNIT/ML 1 ML VIAL SQ ONE (11:17)
[2022-06-27] MEDS ORDERED: ONDANSETRON 4 MG/2 ML VIAL IVP ONE (11:37)
[2022-06-27] MEDS ORDERED: ONDANSETRON 4 MG/2 ML VIAL ONE (11:37)
[2022-06-27] MEDS ORDERED: PHENYLEPHRINE-0.9% NACL SYG 1,000 MCG/10 ML SYRINGE ONE (11:50)
[2022-06-27] MEDS ORDERED: HYDROmorphone (PF) 1 MG/ML ONE (11:50)
[2022-06-27] MEDS ORDERED: NEOSTIGMINE 1 MG/ML 10 ML VIAL ONE (11:50)
[2022-06-27] MEDS ORDERED: fentaNYL (PF) 50 MCG/ML 2 ML AMP ONE (11:50)
[2022-06-27] MEDS ORDERED: ROCURONIUM 10 MG/ML (5 ML VIAL) IV ONE (11:50)
[2022-06-27] MEDS ORDERED: LIDOCAINE 2% INJ 20 MG/ML (2 ML VIAL) ONE (11:50)
[2022-06-27] MEDS ORDERED: GLYCOPYRROLATE 0.2 MG/ML 2 ML VIAL ONE (11:50)
[2022-06-27] MEDS ORDERED: PROPOFOL 10 MG/ML 20 ML VIAL IV ONE (11:50)
[2022-06-27] MEDS ORDERED: SUCCINYLCHOLINE CHLORIDE 200 MG/10 ML VIAL IV ONE (11:50)
[2022-06-27] MEDS ORDERED: BUPIVACAIN-EPI 0.25%-1:200,000 30 ML VIAL SQ ONE (11:55)
[2022-06-27] MEDS ORDERED: LACTATED RINGERS 1,000 ML IV ONE ×2 (12:16→13:05)
--- NOTE | 2022-06-27 12:40 | P.GSHP ---
History of Present Illness H&P Date: 06/27/22 CHIEF COMPLAINT: Abdominal pain HISTORY OF PRESENT ILLNESS: This is a 71-year-old male rhythm the ER with complaints of right lower quadrant abdominal pain. He initially thought he may have had a partial small bowel structure. He had been dealing with constipation for about 24 hours. He did have a bowel movement. Continued to have right lower quadrant pain. Denies any nausea or vomiting. Denies any fevers chills or sweats. He does have a past surgical history of robotic prostate surgery for his prostate cancer. Computed tomography scan of the abdomen and pelvis had shown evidence of acute appendicitis. Patient started on antibiotics and is scheduled for surgery today. Patient does report that his abdominal pain has improved since admission. PAST MEDICAL HISTORY: See below PAST SURGICAL HISTORY: See below MEDICATIONS: See below ALLERGIES: See below SOCIAL HISTORY: No illicit drug use. REVIEW OF SYSTEMS: CONSTITUTIONAL: Denies fever or chills. HEENT: Denies blurred vision, vision changes, or eye pain. Denies hemoptysis CARDIOVASCULAR: Denies chest pain or pressure. RESPIRATORY: No shortness of breath. GASTROINTESTINAL: See HPI for pertinent findings HEMATOLOGIC: Denies bleeding disorders. GENITOURINARY: Denies any blood in urine or increased urinary frequency. SKIN: Denies pruitis. Denies rash. PHYSICAL EXAM: VITAL SIGNS: Reviewed GENERAL: Well-developed in no acute distress. HEENT: No sclera icterus. Extraocular movements grossly intact. Moist buccal mucosa. Head is atraumatic, normocephalic. No nasal drainage. ABDOMEN: Soft. Nondistended. Patient's currently nontender right lower quadrant NEUROLOGIC: Alert and oriented. Cranial nerves II through XII grossly intact. LABORATORY DATA: WBC 9.2 Hgb 14.4 platelets 333 Na 141 potassium 4.1 creatinine 0.94 lactic acid 0.8 LFTs and lipase normal IMAGING: Computed tomography scan abdomen and pelvis acute on couple complicated appendicitis. Nonobstructive 4 mm left renal calculus ASSESSMENT: 1. Acute appendicitis PLAN: -Patient scheduled for laparoscopic cholecystectomy today with Dr. Ramos -Keep patient nothing by mouth -Continue antibiotics -Continue supportive care Physician Sling Operator note has been reviewed by physician. Signing provider agrees with the documented findings, assessment, and plan of care. Past Medical History Past Medical History: Cancer, GERD/Reflux, Hyperlipidemia, Hypertension, Prostate Disorder Additional Past Medical History / Comment(s): hx. Prostate Cancer, palpitations occ, urinary leakage, "stomach pain", constipation, hx "minor diverticulitis", R hip back. Fell off a ladder in December 2021. History of Any Multi-Drug Resistant Organisms: None Reported Past Surgical History: Orthopedic Surgery, Prostate Surgery Additional Past Surgical History / Comment(s): ARTHROSCOPY ISAK. KNEES, Hemorrhoidectomy, isak cataracts, PAIN CLINIC PROCEDURE, Prostate surgery 2004. Past Anesthesia/Blood Transfusion Reactions: No Reported Reaction Additional Past Anesthesia/Blood Transfusion Reaction / Comment(s): . Past Psychological History: No Psychological Hx Reported Smoking Status: Never smoker Past Alcohol Use History: Daily Additional Past Alcohol Use History / Comment(s): . Past Drug Use History: None Reported - Past Family History Mother Family Medical History: Cancer Additional Family Medical History / Comment(s): lung Medications and Allergies Home Medications Medication Instructions Recorded Confirmed Type Omeprazole 20 mg PO HS 11/03/13 06/26/22 History amLODIPine [Norvasc] 10 mg PO DAILY 11/03/13 06/26/22 History ALPRAZolam [Xanax] 0.25 mg PO HS 02/09/15 06/26/22 History Atorvastatin [Lipitor] 40 mg PO HS 05/30/21 06/26/22 History ALPRAZolam [Xanax] 0.25 mg PO BID PRN 06/26/22 06/26/22 History Docusate [Colace] 100 mg PO PC-BID@1200,1700 06/26/22 06/26/22 History Allergies Allergy/AdvReac Type Severity Reaction Status Date / Time No Known Allergies Allergy Verified 06/27/22 10:38 Surgical - Exam Vital Signs Temp Pulse Resp BP Pulse Ox 97.9 F 84 16 115/83 97 06/26/22 15:43 06/26/22 15:43 06/26/22 15:43 06/26/22 15:43 06/26/22 15:43 Results - Labs 06/26/22 17:50 06/26/22 17:50 Abnormal Lab Results - Last 24 Hours (Table) 06/26/22 Range/Units 17:50 Glucose 103 H (74-99) mg/dL Diabetes panel 06/26/22 Range/Units 17:50 Sodium 141 (137-145) mmol/L Potassium 4.1 (3.5-5.1) mmol/L Chloride 105 (98-107) mmol/L Carbon Dioxide 28 (22-30) mmol/L BUN 13 (9-20) mg/dL Creatinine 0.94 (0.66-1.25) mg/dL Glucose 103 H (74-99) mg/dL Calcium 9.8 (8.4-10.2) mg/dL AST 32 (17-59) U/L ALT 37 (4-49) U/L Alkaline Phosphatase 71 (38-126) U/L Total Protein 7.3 (6.3-8.2) g/dL Albumin 4.4 (3.5-5.0) g/dL Calcium panel 06/26/22 Range/Units 17:50 Calcium 9.8 (8.4-10.2) mg/dL Albumin 4.4 (3.5-5.0) g/dL Pituitary panel 06/26/22 Range/Units 17:50 Sodium 141 (137-145) mmol/L Potassium 4.1 (3.5-5.1) mmol/L Chloride 105 (98-107) mmol/L Carbon Dioxide 28 (22-30) mmol/L BUN 13 (9-20) mg/dL Creatinine 0.94 (0.66-1.25) mg/dL Glucose 103 H (74-99) mg/dL Calcium 9.8 (8.4-10.2) mg/dL Adrenal panel 06/26/22 Range/Units 17:50 Sodium 141 (137-145) mmol/L Potassium 4.1 (3.5-5.1) mmol/L Chloride 105 (98-107) mmol/L Carbon Dioxide 28 (22-30) mmol/L BUN 13 (9-20) mg/dL Creatinine 0.94 (0.66-1.25) mg/dL Glucose 103 H (74-99) mg/dL Calcium 9.8 (8.4-10.2) mg/dL Total Bilirubin 0.5 (0.2-1.3) mg/dL AST 32 (17-59) U/L ALT 37 (4-49) U/L Alkaline Phosphatase 71 (38-126) U/L Total Protein 7.3 (6.3-8.2) g/dL Albumin 4.4 (3.5-5.0) g/dL
[2022-06-27] MEDS: HYDROmorphone 0.5 MG/0.5 ML SYRINGE IVP ONE ×3 (13:01→13:24)
[2022-06-27] MEDS ORDERED: METOCLOPRAMIDE 5 MG/ML 2 ML VIAL IVP PRN (13:05)
[2022-06-27] MEDS ORDERED: NALOXONE 0.4 MG/ML 1 ML VIAL IV PRN (13:05)
[2022-06-27] MEDS ORDERED: traMADol 50 MG TAB PO PRN (13:05)
[2022-06-27] MEDS ORDERED: HYDROcodone/APAP 5-325MG 1 EACH TAB PO PRN (13:05)
[2022-06-27] MEDS ORDERED: ACETAMINOPHEN TAB 325 MG TAB PO PRN (13:05)
--- NOTE | 2022-06-27 13:05 | P.OP ---
Date of Procedure: 06/27/22 Preoperative Diagnosis: Acute appendicitis Postoperative Diagnosis: Acute appendicitis Adhesions Procedure(s) Performed: Diagnostic laparoscopy Lysis of adhesions Appendectomy Partial omentectomy Anesthesia: MADDY Surgeon: Skip Ramos Estimated Blood Loss (ml): 25 Pathology: other (Appendix, omentum) Condition: stable Disposition: PACU Description of Procedure: PROCEDURE: The patient was placed on the operating table in the supine position. The patient received a general anesthetic. The abdomen was then prepped and draped in the usual sterile fashion. Through an infraumbilical stab incision, the fascia of the anterior abdominal wall was grasped with a pair of Kochers. The Veress needle was placed in the peritoneal cavity. Position of the Veress needle is confirmed with positive drop test. The abdomen is then insufflated. After adequate insufflation, a 10 mm trocar is placed in the peritoneal cavity. After this, a 5 mm trocar is placed in the low midline position and a 12 mm trocar is placed in the mid epigastric position. There are extensive adhesions seen throughout the peritoneal cavity. This was due to his previous laparoscopic prostatectomy. The adhesions were lysed and then the right colon was mobilized medially. Due to the dense adhesions the procedure could not be performed laparoscopically. At this point the procedure was converted to an open procedure. The trochars withdrawn. The skin was incised in midline. Using left cautery the fascia abdominal wall was divided. And then a abdominal wall retractors placed a wound. The right colon and cecum were mobilized and brought towards the midline. The appendix was in the retrocecal position. 's was visualized the mesial appendix was divided with the Harmonic scissors. And then the appendix was divided at the base the cecum using the CARLINE stapler. The specimens of pathology. The abdomen there is no bleeding seen. The omentum was visualized. There was a small portion of omentum which appeared to be nonviable. This was dissected with large cautery and sent to pathology. The fascia was then closed with looped #1 PDS suture. Skin was closed with karmen. Patient top she will was sent to recovery room stable condition.
[2022-06-27] MEDS: HYDROmorphone 0.5 MG/0.5 ML SYRINGE IVP PRN (13:18)
[2022-06-27] MEDS ORDERED: KETOROLAC 15 MG/ML 1 ML VIAL IVP ONE (13:40)
[2022-06-27] MEDS: HYDROcodone/APAP 5-325MG 1 EACH TAB PO PRN (21:09)
[2022-06-27] MEDS: ATORVASTATIN 40 MG TAB PO SCH (21:13)
[2022-06-27] MEDS: MULTIVITAMINS, THERA 1 EACH TAB PO SCH (21:14)
--- NOTE | 2022-06-27 21:26 | P.CONS ---
History of Present Illness - Reason for Consult Consult date: 06/27/22 Medical management Requesting physician: Skip Ramos - Chief Complaint Abdominal pain - History of Present Illness This is a pleasant 71-year-old patient, follows Dr. Paul Medina. Chronic stable medical conditions include GERD, hyperlipidemia, hypertension, prostate cancer treated with surgery with resultant some incontinence. Patient presented 1 day of increasing abdominal pain. Nausea. No vomiting. No fever and chills. Computed tomography scan of the ER showed appendicitis. Patient this morning was taken down to the OR. Patient had adhesions lysis, and because of the same patient procedure was converted to an open procedure. An appendectomy was carried out. Postprocedure patient is nothing by mouth. Pain is controlled. Review of systems: GEN.: Tired EYES: None HEENT: None NECK: None RESPIRATORY: None CARDIOVASCULAR: None GASTROINTESTINAL: As above GENITOURINARY: None MUSCULOSKELETAL: None LYMPHATICS: None HEMATOLOGICAL: None PSYCHIATRY: None NEUROLOGICAL: None Past medical history to include: GERD, hyperlipidemia, hypertension, prostate cancer with surgery resulting in urinary incontinence, Social history: Nonsmoker. Drinks 2 beers a day. . Retired petroleum engineer. Physical examination: VITAL SIGNS: Afebrile, 97.7, 95, 15, 1 68 x 95, 92% on 5 L GENERAL: BMI 27.3, declining in bed awake not in distress. EYES: Pupils equal. Conjunctiva normal. HEENT: External appearance of nose and ears normal, oral cavity grossly normal. NECK: JVD not raised; masses not palpable. HEART: First and second heart sounds are normal; no edema. LUNGS: Respiratory rate normal; clear to auscultation. ABDOMEN: Soft, tender, no guarding rigidity, liver spleen not palpable, no masses palpable. PSYCH: Alert and oriented x3; mood and affect normal. MUSCULOSKELETAL:No Clubbing/cyanosis;muscles-grossly intact NEUROLOGICAL: Cranial nerves grossly intact; no facial asymmetry, power and sensation grossly intact. LYMPHATICS: No lymph nodes palpable in the axilla and neck INVESTIGATIONS, reviewed in the clinical context: White count 10.2 hemoglobin 14.4 platelets 233 potassium 4.1 creatinine 0.94 Computed tomography scan abdomen and pelvis: Appendicitis Assessment and plan: -Acute appendicitis of about 24 hours duration. Laparoscope he was converted to open because of adhesions. Appendectomy carried out. IV Zosyn -Essential hypertension Amlodipine 10 mg a day -GERD Omeprazole 20 mg daily at bedtime -Hyperlipidemia Lipitor 40 mg daily at bedtime -Anxiety not otherwise specified Senna when necessary IV Zosyn. Saline. Home medications resumed. Subcu Lovenox. Pain control. Care was discussed with the patient. Questions answered. Thank you Dr. Ramos Past Medical History Past Medical History: Cancer, GERD/Reflux, Hyperlipidemia, Hypertension, Prostate Disorder Additional Past Medical History / Comment(s): hx. Prostate Cancer, palpitations occ, urinary leakage, "stomach pain", constipation, hx "minor diverticulitis", R hip back. Fell off a ladder in December 2021. History of Any Multi-Drug Resistant Organisms: None Reported Past Surgical History: Orthopedic Surgery, Prostate Surgery Additional Past Surgical History / Comment(s): ARTHROSCOPY JESSIE. KNEES, Hemorrhoidectomy, jessie cataracts, PAIN CLINIC PROCEDURE, Prostate surgery 2004. Past Anesthesia/Blood Transfusion Reactions: No Reported Reaction Additional Past Anesthesia/Blood Transfusion Reaction / Comm: . Past Psychological History: No Psychological Hx Reported Smoking Status: Never smoker Past Alcohol Use History: Daily Additional Past Alcohol Use History / Comment(s): . Past Drug Use History: None Reported - Past Family History Mother Family Medical History: Cancer Additional Family Medical History / Comment(s): lung Medications and Allergies Home Medications Medication Instructions Recorded Confirmed Type Omeprazole 20 mg PO HS 11/03/13 06/26/22 History amLODIPine [Norvasc] 10 mg PO DAILY 11/03/13 06/26/22 History ALPRAZolam [Xanax] 0.25 mg PO HS 02/09/15 06/26/22 History Atorvastatin [Lipitor] 40 mg PO HS 05/30/21 06/26/22 History ALPRAZolam [Xanax] 0.25 mg PO BID PRN 06/26/22 06/26/22 History Docusate [Colace] 100 mg PO PC-BID@1200,1700 06/26/22 06/26/22 History Allergies Allergy/AdvReac Type Severity Reaction Status Date / Time No Known Allergies Allergy Verified 06/27/22 10:38 Physical Exam Vitals: Vital Signs Temp Pulse Pulse Resp BP BP Pulse Ox 06/27/22 07:19 97.7 F 73 18 136/83 98 06/27/22 01:53 98.3 F 58 L 16 116/72 95 01/11/23 22:40 97.7 F 63 16 142/82 98 06/26/22 19:00 64 16 142/80 97 06/26/22 17:58 98.5 F 76 16 132/89 95 06/26/22 15:43 97.9 F 84 16 115/83 97 Intake and Output 06/26/22 06/27/22 06/27/22 22:59 06:59 14:59 Other: # Voids 4 Weight 83.915 kg Results CBC & Chem 7: 06/26/22 17:50 06/26/22 17:50 Labs: Abnormal Lab Results - Last 24 Hours (Table) 06/26/22 Range/Units 17:50 Glucose 103 H (74-99) mg/dL
[2022-06-27] MEDS: ALPRAZolam 0.25 MG TAB PO PRN (22:20)
[2022-06-28] MEDS: PIPERACILLIN-TAZOBACTAM 3.375 GM in SODIUM CHLORIDE 0.9% 100 ML IVPB SCH ×3 (00:03→16:12)
[2022-06-28] MEDS: SODIUM CHLORIDE 0.9% 1,000 ML IV SCH ×2 (00:05→11:08)
[2022-06-28] MEDS: HYDROcodone/APAP 5-325MG 1 EACH TAB PO PRN (05:15)
[2022-06-28] MEDS: HYDROmorphone 0.5 MG/0.5 ML SYRINGE IVP PRN ×2 (06:28→16:11)
[2022-06-28] MEDS: CHOLECALCIFEROL 125 MCG (5000 IU) TABLET PO SCH ×2 (09:21→09:32)
[2022-06-28] MEDS: PANTOPRAZOLE 40 MG TABLET PO SCH ×2 (09:21→09:29)
[2022-06-28] MEDS: amLODIPine 10 MG TAB PO SCH ×2 (09:21→09:40)
[2022-06-28] MEDS: ENOXAPARIN 40 MG/0.4 ML SYRINGE SQ SCH (09:21)
[2022-06-28] MEDS: ALPRAZolam 0.25 MG TAB PO PRN ×2 (09:40→20:42)
[2022-06-28] MEDS: HYDROmorphone 1 MG/ML 1 ML SYRINGE IVP PRN ×2 (11:04→21:59)
[2022-06-28 12:12] LABS: Basophils # (A) 0.02 X 10*3/uL (0.00-0.10); Basophils % (A) 0.2 %; Eosinophils # (A) 0.01 X 10*3/uL (0.04-0.35); Eosinophils % (A) 0.1 %; HGB 13.2 g/dL (13.0-17.0); Immature Grans, Automated 0.3 %; Lymphocytes # (A) 1.25 X 10*3/uL (0.90-5.00); Lymphocytes % (A) 10.4 %; MCH 31.2 pg (27.0-32.0); MCV 94.6 fL (80.0-97.0); Mean Platelet Volume 9.8 fL (9.5-12.2); Monocytes # (A) 1.06 X 10*3/uL (0.20-1.00); Monocytes % (A) 8.8 %; NRBC Per 100 WBC 0 /100 WBCS (0.0-0.0); Neutrophils # (A) 9.64 X 10*3/uL (1.80-7.70); Neutrophils % (A) 80.2 %; Platelet Count 324 X 10*3/uL (140-440); RBC 4.23 X 10*6/uL (4.40-5.60); RDW 12.4 % (11.5-14.5); WBC 12.02 X 10*3/uL (4.50-10.00)
[2022-06-28 12:14] LABS: African American GFR (CKD) 86.8 (60.0-200.0); Albumin 4.1 g/dL (3.8-4.9); Albumin/Globulin Ratio 1.78 (1.60-3.17); Anion Gap 11.5 mmol/L (10.00-18.00); BUN/Creat Ratio 12.7 Ratio (12.00-20.00); Blood Urea Nitrogen 12.7 mg/dL (9.0-27.0); Calcium 9.3 mg/dL (8.7-10.3); Carbon Dioxide 25.3 mmol/L (20.0-27.5); Globulin 2.3 g/dL (1.6-3.3); Non-African American GFR(CKD) 74.9 (60.0-200.0); Potassium 4.3 mmol/L (3.5-5.5); Total Bilirubin 0.4 mg/dL (0.30-1.20); Total Protein 6.4 g/dL (6.2-8.2)
[2022-06-28] MEDS: ONDANSETRON 4 MG/2 ML VIAL IVP PRN ×2 (12:41→21:14)
--- NOTE | 2022-06-28 13:13 | P.PN ---
Progress Note - Text Progress Note Date: 06/28/22 - Chief Complaint Abdominal pain This is a pleasant 71-year-old patient, follows Dr. Paul Medina. Chronic stable medical conditions include GERD, hyperlipidemia, hypertension, prostate cancer treated with surgery with resultant some incontinence. Patient presented 1 day of increasing abdominal pain. Nausea. No vomiting. No fever and chills. Computed tomography scan of the ER showed appendicitis. Patient this morning was taken down to the OR. Patient had adhesions lysis, and because of the same patient procedure was converted to an open procedure. An appendectomy was carried out. Postprocedure patient is nothing by mouth. Pain is controlled. 06/28/2022: Sitting up in a recliner. No flatus. Some abdominal pain. Has a binder in place. Remains nothing by mouth. IV fluids. IV Zosyn. We'll have the patient ambulate Active Medications Acetaminophen (Acetaminophen Tab 325 Mg Tab) 650 mg PO Q6HR PRN PRN Reason: Mild Pain or Fever >= 100.5 Hydrocodone Bitart/Acetaminophen (Hydrocodone/Apap 5-325mg 1 Each Tab) 1 each PO Q4HR PRN PRN Reason: Moderate Pain (Scale 4 to 6) Last Admin: 06/28/22 05:15 Dose: 1 each Hydrocodone Bitart/Acetaminophen (Hydrocodone/Apap 5-325mg 1 Each Tab) 2 each PO Q6HR PRN PRN Reason: Severe Pain (Scale 7 to 10) Alprazolam (Alprazolam 0.25 Mg Tab) 0.25 mg PO HS PRN PRN Reason: Anxiety Last Admin: 06/27/22 22:20 Dose: 0.25 mg Alprazolam (Alprazolam 0.25 Mg Tab) 0.25 mg PO BID PRN PRN Reason: Anxiety Last Admin: 06/28/22 09:40 Dose: 0.25 mg Amlodipine Besylate (Amlodipine 10 Mg Tab) [facility] [place] Last Admin: 06/28/22 09:40 Dose: 10 mg Atorvastatin Calcium (Atorvastatin 40 Mg Tab) 40 mg PO HS [facility] Last Admin: 06/27/22 21:13 Dose: Not Given Cholecalciferol (Cholecalciferol 125 Mcg (5000 Iu) Tablet) 125 mcg PO DAILY [facility] Last Admin: 06/28/22 09:32 Dose: Not Given Enoxaparin Sodium (Enoxaparin 40 Mg/0.4 Ml Syringe) 40 mg SQ DAILY [facility] Last Admin: 06/28/22 09:21 Dose: 40 mg Hydromorphone HCl (Hydromorphone 0.5 Mg/0.5 Ml Syringe) 0.5 mg IVP Q3HR PRN PRN Reason: Moderate Pain (Scale 4 to 6) Last Admin: 06/28/22 06:28 Dose: 0.5 mg Hydromorphone HCl (Hydromorphone 1 Mg/Ml 1 Ml Syringe) 1 mg IVP Q4HR PRN PRN Reason: Severe Pain (Scale 7 to 10) Last Admin: 06/28/22 11:04 Dose: 1 mg Sodium Chloride (Saline 0.9%) 1,000 mls @ 75 mls/hr IV .[id number] [facility] Last Admin: 06/28/22 11:08 Dose: 75 mls/hr Piperacillin Sod/Tazobactam (Sod 3.375 gm/ Sodium Chloride) 100 mls @ 25 mls/hr IVPB Q8HR [facility]; Protocol Last Admin: 06/28/22 09:21 Dose: 25 mls/hr Metoclopramide HCl (Metoclopramide 5 Mg/Ml 2 Ml Vial) 10 mg IVP Q6H PRN PRN Reason: Nausea And Vomiting Multivitamins (Multivitamins, Thera 1 Each Tab) 1 each PO HS [facility] Last Admin: 06/27/22 21:14 Dose: Not Given Naloxone HCl (Naloxone 0.4 Mg/Ml 1 Ml Vial) 0.2 mg IV Q2M PRN PRN Reason: Opioid Reversal Ondansetron HCl (Ondansetron 4 Mg/2 Ml Vial) 4 mg IVP Q6HR PRN PRN Reason: Nausea And Vomiting Last Admin: 06/28/22 12:41 Dose: 4 mg Pantoprazole Sodium (Pantoprazole 40 Mg Tablet) 40 mg PO QAM [facility] Last Admin: 06/28/22 09:29 Dose: Not Given Propranolol HCl (Propranolol 10 Mg Tab) 10 mg PO BID PRN PRN Reason: heart palpitations Tramadol HCl (Tramadol 50 Mg Tab) 50 mg PO Q6H PRN PRN Reason: Moderate Pain (Scale 4 to 6) Past medical history to include: GERD, hyperlipidemia, hypertension, prostate cancer with surgery resulting in urinary incontinence, Social history: Nonsmoker. Drinks 2 beers a day. . Retired facilities engineer. Physical examination: VITAL SIGNS: 98, 79, 18, 150/76, 93% on 4 L GENERAL: In a recliner, comfortable EYES: Pupils equal. Conjunctiva normal. HEENT: External appearance of nose and ears normal, oral cavity grossly normal. NECK: JVD not raised; masses not palpable. HEART: First and second heart sounds are normal; no edema. LUNGS: Respiratory rate normal; clear to auscultation. ABDOMEN: Soft, tender, no guarding rigidity, binder in place PSYCH: Alert and oriented x3; mood and affect normal. INVESTIGATIONS, reviewed in the clinical context: 06/28/2022: White count 12.0 hemoglobin 13.2 potassium 4.3 creatinine 1.0 White count 10.2 hemoglobin 14.4 platelets 233 potassium 4.1 creatinine 0.94 Computed tomography scan abdomen and pelvis: Appendicitis Assessment and plan: -Acute appendicitis Laparoscopice was converted to open because of adhesions. Appendectomy by Dr. Ramos June 27. IV Zosyn. Patient nothing by mouth -Essential hypertension Amlodipine 10 mg a day -GERD Omeprazole 20 mg daily at bedtime -Hyperlipidemia Lipitor 40 mg daily at bedtime -Anxiety not otherwise specified Senna when necessary IV Zosyn. Saline. Subcu Lovenox. Pain control. Increase activity. Discussed with patient. Thank you Dr. Ramos
--- NOTE | 2022-06-28 14:58 | P.PN ---
Subjective Progress Note Date: 06/28/22 CHIEF COMPLAINT: Acute appendicitis HISTORY OF PRESENT ILLNESS: Patient is postop day #1 status post diagnostic laparoscopy, exploratory laparotomy, lysis of adhesions, appendectomy and partial omentectomy. Patient reports his pain is controlled. He is having a small amount of flatus. Denies any nausea or vomiting. Afebrile. WBC is 12.0 to Hgb is 13.2 platelets are 324 sodium is 141 potassium is 4.3 creatinine is 1.0 PHYSICAL EXAM: VITAL SIGNS: Reviewed. GENERAL: Well-developed in no acute distress. HEENT: No sclera icterus. Extraocular movements grossly intact. Moist buccal mucosa. Head is atraumatic, normocephalic. ABDOMEN: Soft. Mildly distended. Minimal tenderness at incision site. Distal incision small amount of blood oozing from incision site NEUROLOGIC: Alert and oriented. Cranial nerves II through XII grossly intact. ASSESSMENT: 1. Acute appendicitis and adhesions status post diagnostic laparoscopy, exploratory laparotomy, lysis of adhesions, appendectomy and partial omentectomy PLAN: -Keep patient nothing by mouth except for ice chips and meds -Continue IV fluids -Continue pain medication -Continue antibiotics -Encouraged patient ambulate -Encouraged patient to use incentive spirometer -GI prophylaxis Protonix and DVT prophylaxis Lovenox Physician Regional Agronomist note has been reviewed by physician. Signing provider agrees with the documented findings, assessment, and plan of care. Objective - Vital Signs Vital signs: Vital Signs Temp 98.0 F 06/28/22 07:23 Pulse 79 06/28/22 07:23 Resp 18 06/28/22 07:23 BP 154/76 06/28/22 07:23 Pulse Ox 93 L 06/28/22 07:23 FiO2 Intake & Output 06/27/22 06/28/22 06/28/22 18:59 06:59 18:59 Intake Total 1300 Output Total 25 0 Balance 1275 0 Weight 83.915 kg Intake: IV 1300 Oral 0 Output: Urine 0 Estimated Blood Loss 25 Other: # Voids 2 - Labs CBC & Chem 7: 06/28/22 06:19 06/28/22 06:19 Labs: Abnormal Lab Results - Last 24 Hours (Table) 06/28/22 06/28/22 Range/Units 06:19 06:19 WBC 12.02 H (4.50-10.00) X 10*3/uL RBC 4.23 L (4.40-5.60) X 10*6/uL Neutrophils # 9.64 H (1.80-7.70) X 10*3/uL Monocytes # 1.06 H (0.20-1.00) X 10*3/uL Eosinophils # 0.01 L (0.04-0.35) X 10*3/uL Glucose 117 H (70-110) mg/dL Microbiology - Last 24 Hours (Table) 06/26/22 19:45 Blood Culture - Preliminary Blood No Growth after 24 hours 06/26/22 20:00 Blood Culture - Preliminary Blood No Growth after 24 hours
[2022-06-28] MEDS: MULTIVITAMINS, THERA 1 EACH TAB PO SCH (20:40)
[2022-06-28] MEDS: ATORVASTATIN 40 MG TAB PO SCH (20:40)
[2022-06-29] MEDS: PIPERACILLIN-TAZOBACTAM 3.375 GM in SODIUM CHLORIDE 0.9% 100 ML IVPB SCH ×4 (00:26→23:41)
[2022-06-29 07:25] LABS: Basophils % (A) 1 %; Eosinophils # (A) 0.3 k/uL (0-0.7); Eosinophils % (A) 3 %; HCT 37.9 % (39.0-53.0); HGB 12.8 gm/dL (13.0-17.5); Lymphocytes % (A) 11 %; MCH 31.1 pg (25.0-35.0); MCHC 33.7 g/dL (31.0-37.0); MCV 92.3 fL (80.0-100.0); Mean Platelet Volume 7.8; Monocytes # (A) 0.5 k/uL (0-1.0); Monocytes % (A) 5 %; Neutrophils # (A) 7.3 k/uL (1.3-7.7); Neutrophils % (A) 80 %; Platelet Count 282 k/uL (150-450); RDW 12.5 % (11.5-15.5); WBC 9.2 k/uL (3.8-10.6)
[2022-06-29 07:36] LABS: African American GFR (CKD) >90 (>60 ml/min/1.73 sqM); Anion Gap 7 mmol/L; Blood Urea Nitrogen 12 mg/dL (9-20); Calcium 8.6 mg/dL (8.4-10.2); Carbon Dioxide 28 mmol/L (22-30); Chloride 106 mmol/L (98-107); Glucose 100 mg/dL (74-99); Non-African American GFR(CKD) 88 (>60 ml/min/1.73 sqM); Potassium 3.8 mmol/L (3.5-5.1); Sodium 141 mmol/L (137-145)
[2022-06-29] MEDS: SODIUM CHLORIDE 0.9% 1,000 ML IV SCH ×2 (07:43→13:57)
[2022-06-29] MEDS: ENOXAPARIN 40 MG/0.4 ML SYRINGE SQ SCH (08:56)
[2022-06-29] MEDS: CHOLECALCIFEROL 125 MCG (5000 IU) TABLET PO SCH (08:56)
[2022-06-29] MEDS: amLODIPine 10 MG TAB PO SCH (08:56)
[2022-06-29] MEDS: PANTOPRAZOLE 40 MG TABLET PO SCH (08:56)
[2022-06-29] MEDS: HYDROcodone/APAP 5-325MG 1 EACH TAB PO PRN ×2 (10:11→20:16)
--- NOTE | 2022-06-29 10:52 | P.PN ---
Progress Note - Text Progress Note Date: 06/29/22 Patient's resting comfortably in his bed. The patient still requiring oxygen support rotation. He has some mild incisional pain. On exam vital signs are stable. Abdomen is soft. Incisions clean dry tach. Status post exploratory laparotomy for appendicitis. Patient will continue receive IV antibiotics and supportive care. He'll be assessed by the pulmonology team. Most likely has hypoxia due to atelectasis.
--- NOTE | 2022-06-29 10:58 | XR ---
EXAMINATION TYPE: XR chest 1V portable DATE OF EXAM: 06/29/2022 10:30 AM COMPARISON: Chest radiographs from 10/10/2010 TECHNIQUE: XR chest 1V portable Portable AP radiograph of the chest. CLINICAL INDICATION:Male, 71 years old with history of Hypoxemia; FINDINGS: The patient is semiupright. Lungs/Pleura: No evidence of focal consolidation or pneumothorax. Blunting of the costophrenic angles is present. Pulmonary vascularity: Pulmonary vascular congestion. Heart/mediastinum: Cardiomediastinal silhouette is enlarged and stable. Musculoskeletal: No acute osseous pathology. IMPRESSION: Suboptimal positioning, Cardiomegaly with possible bilateral pleural effusions correlate serum BNP.
[2022-06-29] MEDS ORDERED: FUROSEMIDE 10 MG/ML 4 ML VIAL IV STA (13:12)
--- NOTE | 2022-06-29 13:12 | P.CNPUL ---
History of Present Illness Consult date: 06/29/22 Requesting physician: Skip Ramos Reason for consult: hypoxemia Chief complaint: Abdominal pain and bloating History of present illness: This is a pleasant 71-year-old male patient with a known history of prostate cancer with previous surgery in 2015, previous small bowel obstruction resolved on its own, hypertension, anxiety, hyperlipidemia, gastroesophageal reflux disease, daily alcohol use, nonsmoker. He presented here to the emergency room on 06/26/2022 with complaints of abdominal pain and bloating. He was found to have acute appendicitis and had undergone a diagnostic laparoscopic, exploratory laparotomy, lysis of adhesions, appendectomy and partial omentumectomy on 06/27/2022. We're consulted today the patient had been having migraines issues with hypoxemia requiring oxygen at 2 L/m per nasal cannula with O2 saturations in the 90s. He is afebrile. Hemodynamically stable. Chest x-ray today reveals cardiomegaly with possible bilateral pleural effusions. No evidence of focal consolidation or pneumothorax. Blood cultures revealed no growth. White count 9.2. Hemoglobin 12.8. Sodium 141. Potassium 3.8. BUN 12. Creatinine 0.83. Bicarb 28. He remains on Zosyn. Lovenox for DVT. Pain is well controlled. He is seen today in consultation on the regular medical floor. He is currently sitting up in a chair at the bedside. Maintaining good O2 saturations in the 90s on 3 L. He denies any worsening shortness of breath. No cough or congestion. No hemoptysis. He could be doing better with his incentive spirometer. Review of Systems REVIEW OF SYSTEMS: CONSTITUTIONAL: Denies any recent significant weight loss or weight gain. EYES: Denies change in vision. EARS, NOSE, MOUTH, THROAT: Denies headaches, denies sore throat. CARDIOVASCULAR: Denies chest pain, palpitations or syncopal episodes. RESPIRATORY: Denies shortness of breath, cough, congestion or hemoptysis. GASTROINTESTINAL: Initially positive for abdominal pain and bloating GENITOURINARY: Denies hematuria, denies infections. MUSKULOSKELETAL: Denies pain, denies swelling. INTEGUMENTARY: Denies rash, denies eczema. NEUROLOGICAL: Denies recent memory loss, no recent seizure activity. PSYCHIATRIC: Denies anxiety, denies depression. HEMATOLOGIC/LYMPHATIC: Denies anemia, denies enlarged lymph nodes. Past Medical History Past Medical History: Cancer, GERD/Reflux, Hyperlipidemia, Hypertension, Prostate Disorder Additional Past Medical History / Comment(s): hx. Prostate Cancer, palpitations occ, urinary leakage, "stomach pain", constipation, hx "minor diverticulitis", R hip back. Fell off a ladder in December 2021. History of Any Multi-Drug Resistant Organisms: None Reported Past Surgical History: Orthopedic Surgery, Prostate Surgery Additional Past Surgical History / Comment(s): ARTHROSCOPY ISAK. KNEES, Hemorrhoidectomy, isak cataracts, PAIN CLINIC PROCEDURE, Prostate surgery 2004. Past Anesthesia/Blood Transfusion Reactions: No Reported Reaction Additional Past Anesthesia/Blood Transfusion Reaction / Comment(s): . Past Psychological History: No Psychological Hx Reported Smoking Status: Never smoker Past Alcohol Use History: Daily Additional Past Alcohol Use History / Comment(s): . Past Drug Use History: None Reported - Past Family History Mother Family Medical History: Cancer Additional Family Medical History / Comment(s): lung Medications and Allergies Home Medications Medication Instructions Recorded Confirmed Type Omeprazole 20 mg PO HS 11/03/13 06/26/22 History amLODIPine [Norvasc] 10 mg PO DAILY 11/03/13 06/26/22 History ALPRAZolam [Xanax] 0.25 mg PO HS 02/09/15 06/26/22 History Atorvastatin [Lipitor] 40 mg PO HS 05/30/21 06/26/22 History ALPRAZolam [Xanax] 0.25 mg PO BID PRN 06/26/22 06/26/22 History Docusate [Colace] 100 mg PO PC-BID@1200,1700 06/26/22 06/26/22 History Allergies Allergy/AdvReac Type Severity Reaction Status Date / Time No Known Allergies Allergy Verified 06/27/22 10:38 Physical Exam Vitals: Vital Signs Temp Pulse Resp BP Pulse Ox 06/29/22 08:00 18 06/29/22 07:28 94 L 06/29/22 07:23 98.8 F 92 17 155/79 92 L 06/29/22 01:16 98.1 F 82 17 151/87 94 L 06/28/22 20:41 98.1 F 96 19 165/91 94 L 06/28/22 20:00 20 06/28/22 14:00 98.9 F 80 18 142/79 92 L Intake and Output 06/28/22 06/29/22 06/29/22 22:59 06:59 14:59 Intake Total 900 Balance 900 Intake: IV 900 Sodium Chloride 0.9% 1, 900 000 ml @ 75 mls/hr IV . [id number] [facility] Rx#:[id number] Other: # Voids 2 GENERAL EXAM: Alert, pleasant 71-year-old male, up in a chair, on 3 L nasal cannula, comfortable in no apparent distress. HEAD: Normocephalic. EYES: Normal reaction of pupils, equal size. NOSE: Clear with pink turbinates. THROAT: No erythema or exudates. NECK: No masses, no JVD. CHEST: No chest wall deformity. LUNGS: Equal air entry with faint crackles in the posterior bases. CVS: S1 and S2 normal with no audible murmur, regular rhythm. ABDOMEN: Incisions clean dry well approximated. No hepatosplenomegaly, normal bowel sounds, no guarding or rigidity. SPINE: No scoliosis or deformity SKIN: No rashes CENTRAL NERVOUS SYSTEM: No focal deficits, tone is normal in all 4 extremities. EXTREMITIES: There is no peripheral edema. No clubbing, no cyanosis. Peripheral pulses are intact. Results - Laboratory Findings CBC and BMP: 06/29/22 07:09 06/29/22 07:09 Abnormal lab findings: Abnormal Labs 06/26/22 06/28/22 06/28/22 17:50 06:19 06:19 WBC 12.02 H RBC 4.23 L Hgb Hct Neutrophils # 9.64 H Monocytes # 1.06 H Eosinophils # 0.01 L Glucose 103 H 117 H 06/29/22 06/29/22 07:09 07:09 WBC RBC 4.10 L Hgb 12.8 L Hct 37.9 L Neutrophils # Monocytes # Eosinophils # Glucose 100 H - Diagnostic Findings Chest x-ray: image reviewed Assessment and Plan Assessment: Acute appendicitis status post diagnostic laparoscopy, exploratory laparotomy, lysis of adhesions, appendectomy, partial omentectomy on 06/27/2022. Postoperative day #2. Acute hypoxemic respiratory failure secondary to atelectasis and small bilateral effusions, not an expected outcome of abdominal surgery Lifelong nonsmoker History of hypertension Hyperlipidemia Gastroesophageal reflux disease Anxiety History of previous partial small bowel obstruction without surgical intervention History of prostate cancer status post surgery in 2014 Plan: The patient was seen and evaluated Chest x-ray, labs and medications reviewed Encouraged increased use of the incentive spirometer Give Lasix 40 mg IVP 1 Increase his activity as tolerated Titrate down the FiO2 as tolerated Continued on Zosyn Albuterol updraft treatments as needed We'll continue to follow and make further recommendations based on his clinical status I have personally seen and examined the patient, performed the documentation and the assessment and plan as written. Number of minutes spent on the visit: 20.
--- NOTE | 2022-06-29 15:25 | P.PN ---
Subjective Patient is admitted for acute appendicitis status post appendectomy. Patient is clinically doing well. Constitutional: Denied any fatigue denied any fever. Cardio vascular: denied any chest pain, palpitations Gastrointestinal denied any nausea vomiting Pulmonary: Denied any shortness of breath cough Neurologic denied any new focal deficits All inpatient medications were reviewed and appropriate changes in these medications as dictated in the interval history and assessment and plan. PHYSICAL EXAMINATION: GENERAL: The patient is alert and oriented x3, not in any acute distress. Well developed, well nourished. HEENT: Pupils are round and equally reacting to light. EOMI. No scleral icterus. No conjunctival pallor. Normocephalic, atraumatic. No pharyngeal erythema. No thyromegaly. CARDIOVASCULAR: S1 and S2 present. No murmurs, rubs, or gallops. PULMONARY: Chest is clear to auscultation, no wheezing or crackles. ABDOMEN: Soft, nontender, nondistended, normoactive bowel sounds. No palpable organomegaly. MUSCULOSKELETAL: No joint swelling or deformity. EXTREMITIES: No cyanosis, clubbing, or pedal edema. NEUROLOGICAL: Gross neurological examination did not reveal any focal deficits. SKIN: No rashes. Assessment and plan Acute appendicitis status post appendectomy patient is on Zosyn which will be continued -Hypertension blood pressure is fairly well controlled continue with present regimen -Mild volume overload secondary to IV fluids patient is being given IV Lasix once -Hyperlipidemia -Gastroesophageal reflux disease -History of breast cancer status post surgery Objective - Vital Signs Vital signs: Vital Signs Temp 98 F 06/29/22 14:06 Pulse 90 06/29/22 14:06 Resp 20 06/29/22 14:06 BP 142/48 06/29/22 14:06 Pulse Ox 93 L 06/29/22 14:06 FiO2 Intake & Output 06/28/22 06/29/22 06/29/22 18:59 06:59 18:59 Intake Total 900 Balance 900 Intake: IV 900 Sodium Chloride 0.9% 1, 900 000 ml @ 75 mls/hr IV . [id number] [facility] Rx#:[id number] Other: # Voids 2 - Labs CBC & Chem 7: 06/29/22 07:09 06/29/22 07:09 Labs: Abnormal Lab Results - Last 24 Hours (Table) 06/29/22 06/29/22 Range/Units 07:09 07:09 RBC 4.10 L (4.30-5.90) m/uL Hgb 12.8 L (13.0-17.5) gm/dL Hct 37.9 L (39.0-53.0) % Glucose 100 H (74-99) mg/dL Microbiology - Last 24 Hours (Table) 06/26/22 20:00 Blood Culture - Preliminary Blood No Growth after 48 hours 06/26/22 19:45 Blood Culture - Preliminary Blood No Growth after 48 hours
[2022-06-29] MEDS: ALBUTEROL NEBULIZED 2.5 MG/3 ML INHALATION PRN (20:16)
[2022-06-29] MEDS: MULTIVITAMINS, THERA 1 EACH TAB PO SCH (20:16)
[2022-06-29] MEDS: ALPRAZolam 0.25 MG TAB PO PRN (20:16)
[2022-06-29] MEDS: ATORVASTATIN 40 MG TAB PO SCH (20:16)
[2022-06-30] MEDS: ENOXAPARIN 40 MG/0.4 ML SYRINGE SQ SCH (08:14)
[2022-06-30] MEDS: CHOLECALCIFEROL 125 MCG (5000 IU) TABLET PO SCH (08:14)
[2022-06-30] MEDS: PIPERACILLIN-TAZOBACTAM 3.375 GM in SODIUM CHLORIDE 0.9% 100 ML IVPB SCH ×3 (08:14→23:27)
[2022-06-30] MEDS: amLODIPine 10 MG TAB PO SCH (08:14)
[2022-06-30] MEDS: PANTOPRAZOLE 40 MG TABLET PO SCH (08:14)
[2022-06-30] MEDS: ALBUTEROL NEBULIZED 2.5 MG/3 ML INHALATION PRN ×2 (08:55→12:47)
--- NOTE | 2022-06-30 09:13 | XR ---
EXAMINATION TYPE: XR chest 1V portable DATE OF EXAM: 06/30/2022 8:24 AM COMPARISON: Chest radiographs from TECHNIQUE: XR chest 1V portable Portable AP radiograph of the chest. CLINICAL INDICATION:Male, 71 years old with history of chf/atelectasis; FINDINGS: Lungs/Pleura: No evidence of focal consolidation or pneumothorax. Blunting of the costophrenic angles is present. Pulmonary vascularity: Unremarkable. Heart/mediastinum: Cardiomediastinal silhouette is enlarged and stable. Musculoskeletal: No acute osseous pathology. IMPRESSION: Cardiomegaly, pulmonary vascular congestion and bilateral pleural effusions.
[2022-06-30] MEDS ORDERED: FUROSEMIDE 10 MG/ML 2 ML VIAL IV ONE (09:30)
--- NOTE | 2022-06-30 11:32 | P.PN ---
Progress Note - Text Progress Note Date: 06/30/22 The patient doing better today. He is on room air. Patient had a large amount of flatus. On exam vital signs are stable. Abdomen soft. Incision is clean dry tach. Status post open appendectomy. Patient will start diet today.
--- NOTE | 2022-06-30 12:54 | P.PN ---
Subjective Progress Note Date: 06/30/22 Principal diagnosis: Acute appendicitis, status post appendectomy, postoperative hypoxia related to atelectasis Expected. This is a pleasant 71-year-old male patient with a known history of prostate cancer with previous surgery in 2015, previous small bowel obstruction resolved on its own, hypertension, anxiety, hyperlipidemia, gastroesophageal reflux disease, daily alcohol use, nonsmoker. He presented here to the emergency room on 06/26/2022 with complaints of abdominal pain and bloating. He was found to have acute appendicitis and had undergone a diagnostic laparoscopic, exploratory laparotomy, lysis of adhesions, appendectomy and partial omentumectomy on 06/27/2022. We're consulted today the patient had been having migraines issues with hypoxemia requiring oxygen at 2 L/m per nasal cannula with O2 saturations in the 90s. He is afebrile. Hemodynamically stable. Chest x-ray today reveals cardiomegaly with possible bilateral pleural effusions. No evidence of focal consolidation or pneumothorax. Blood cultures revealed no growth. White count 9.2. Hemoglobin 12.8. Sodium 141. Potassium 3.8. BUN 12. Creatinine 0.83. Bicarb 28. He remains on Zosyn. Lovenox for DVT. Pain is well controlled. He is seen today in consultation on the regular medical floor. He is currently sitting up in a chair at the bedside. Maintaining good O2 saturations in the 90s on 3 L. He denies any worsening shortness of breath. No cough or congestion. No hemoptysis. He could be doing better with his incentive spirometer. Patient was reevaluated today on 06/30/21, patient is feeling much better today, he is now on room air, he is doing well with incentive spirometry, and chest x- ray continues to show some atelectasis and small bilateral pleural effusions, he was given Lasix yesterday, and he was given another dose of Lasix this morning. Nonetheless the patient is doing great, and he is clinically much better today compared to yesterday, not to mention he is off oxygen completely. Remains on antibiotics for his appendicitis. Patient has no bowel movements yet, he is not passing any gas, is mostly on liquids at this point as per surgery. CBC is un remarkable electrolytes are normal renal profile is normal, follow-up chest x- ray this morning showed cardiomegaly, pulmonary vascular congestion, and small bilateral pleural effusions as well as atelectasis Objective - Vital Signs Vital signs: Vital Signs Temp 98.0 F 06/30/22 08:05 Pulse 85 06/30/22 09:05 Resp 16 06/30/22 09:05 BP 154/77 06/30/22 08:05 Pulse Ox 95 06/30/22 08:54 FiO2 Intake & Output 06/29/22 06/30/22 06/30/22 18:59 06:59 18:59 Intake Total 150 1060 300 Output Total 0 Balance 150 1060 300 Intake: Intake, IV Titration 100 Amount Piperacillin-Tazobactam 3 100 .375 gm In Sodium Chloride 0.9% 100 ml @ 25 mls/hr IVPB Q8HR ON LICENSE OF [facility] Rx# :[id number] Oral 150 960 300 Output: Urine 0 Other: Voiding Method Toilet Toilet # Voids 2 2 - Exam Physical Exam: Revealed 71-year-old white male pleasant in no distress on room air Head: Atraumatic, normocephalic. HEENT:[Neck is supple.] [No neck masses.] [No thyromegaly.] [No JVD.] Chest: [Clear throughout, no crackles, no rhonchi, no wheezes.] Cardiac Exam: [Normal S1 and S2, no S3 gallop, no murmur.] Abdomen: [Postsurgical, Soft, nontender, no megaly, no rebound, no guarding, no bowel sounds Extremities: [No clubbing, no edema, no cyanosis.] Neurological Exam: [No focal neurologic deficit.] Alert and oriented 3. Psychiatric: Normal mood affect and normal mental status examination. Skin: No rashes - Labs CBC & Chem 7: 06/29/22 07:09 06/29/22 07:09 Labs: Microbiology - Last 24 Hours (Table) 06/26/22 20:00 Blood Culture - Preliminary Blood No Growth after 72 hours 06/26/22 19:45 Blood Culture - Preliminary Blood No Growth after 72 hours Assessment and Plan Assessment: Impression: Acute appendicitis status post diagnostic laparoscopy, exploratory laparotomy, lysis of adhesions, appendectomy, partial omentectomy on 06/27/2022. Postoperative day #3 Acute hypoxemic respiratory failure secondary to atelectasis , expected postoperatively. Bilateral pleural effusions postoperatively, unexpected suspect some component of fluid overload, likely the patient will improve with diuresis. Remains on diuretics. Lifelong nonsmoker History of hypertension Hyperlipidemia Gastroesophageal reflux disease Anxiety History of previous partial small bowel obstruction without surgical intervention History of prostate cancer status post surgery in 2014 Recommendation: Continue incentive spirometry Continue to ambulate Another dose of Lasix given this morning IV fluid to KVO Continue antibiotics Advanced diet as recommended by surgery Not quite ready for discharge planning Possibly repeat chest x-ray before discharge. Will follow. Time with Patient: Less than 30
--- NOTE | 2022-06-30 13:36 | P.PN ---
Subjective Progress Note Date: 06/30/22 Patient is admitted for acute appendicitis status post appendectomy. Patient is clinically doing well. 06/30/2022 Patient is postoperative day #3 appendectomy, diagnostic laparoscopy, exploratory laparotomy, lysis of adhesions and partial omentectomy. He is passing gas, has not had BM yet feels he may have one today. On full liquid diet. Pulmonary was consulted yesterday for further evaluation as patient has required oxygen support. Today he is evaluated while on room air and he states his saturations have been around 97%. He received a dose of lasix yesterday and also IV fluids were discontinued. He reports improvement in his breathing. He continues on IV zosyn. He had a follow up chest xray today showing pulmonary vascular congestion and also bilateral pleural effusions and he will be given another dose of IV lasix. SerumBNP 123. Echocardiogram has been ordered and pending at this time. Has been following with Dr. Reynoso and states he was scheduled to have routine echo in August. No prior history of heart failure. Review of Systems Constitutional: Denied any fatigue denied any fever. Cardio vascular: denied any chest pain, palpitations Gastrointestinal denied any nausea vomiting Pulmonary: Denied any shortness of breath cough Neurologic denied any new focal deficits All inpatient medications were reviewed and appropriate changes in these medications as dictated in the interval history and assessment and plan. PHYSICAL EXAMINATION: GENERAL: The patient is alert and oriented x3, not in any acute distress. Well developed, well nourished. HEENT: Pupils are round and equally reacting to light. EOMI. No scleral icterus. No conjunctival pallor. Normocephalic, atraumatic. No pharyngeal erythema. No thyromegaly. CARDIOVASCULAR: S1 and S2 present. No murmurs, rubs, or gallops. PULMONARY: Chest is clear to auscultation, no wheezing or crackles. ABDOMEN: Soft, nontender, nondistended, normoactive bowel sounds. No palpable organomegaly. MUSCULOSKELETAL: No joint swelling or deformity. EXTREMITIES: No cyanosis, clubbing, or pedal edema. NEUROLOGICAL: Gross neurological examination did not reveal any focal deficits. SKIN: No rashes. Assessment and plan Acute appendicitis status post op day #3 appendectomy patient is on Zosyn which will be continued has been started on full liquid diet. -Acute hypoxic respiratory failure likely from fluid overload patient had chest xray showing vascular congestion and pulmonary overload, treated with IV lasix. -Hypertension blood pressure is fairly well controlled continue with present regimen -Hyperlipidemia -Gastroesophageal reflux disease -History of prostate cancer status post surgery GI prophylaxis DVT prophylaxis Full Code Plan IV lasix x 1 today and echocardiogram is currently pending at this time. He is being followed closely by pulmonary services. He has been able to tolerate room air and reports breathing better. Possible DC in the next 24 hours. The impression and plan of care has been dictated by Hallie Nelson, Nurse Practitioner as directed. Dr. Maxx MD I have performed a history and physical examination and medical decision making of this patient, discussed the same with the dictator, and agree with the dictators assessment and plan as written, documented as a scribe. Based on total visit time, I have performed more than 50% of this visit. Objective - Vital Signs Vital signs: Vital Signs Temp 99.5 F 06/30/22 01:35 Pulse 85 06/30/22 08:54 Resp 16 06/30/22 08:54 BP 126/80 06/30/22 01:35 Pulse Ox 95 06/30/22 08:54 FiO2 Intake & Output 06/29/22 06/30/22 06/30/22 18:59 06:59 18:59 Intake Total 150 1060 300 Output Total 0 Balance 150 1060 300 Intake: Intake, IV Titration 100 Amount Piperacillin-Tazobactam 3 100 .375 gm In Sodium Chloride 0.9% 100 ml @ 25 mls/hr IVPB Q8HR [facility] Rx# :[id number] Oral 150 960 300 Output: Urine 0 Other: Voiding Method Toilet Toilet # Voids 2 2 - Labs CBC & Chem 7: 06/29/22 07:09 06/29/22 07:09 Labs: Microbiology - Last 24 Hours (Table) 06/26/22 20:00 Blood Culture - Preliminary Blood No Growth after 72 hours 06/26/22 19:45 Blood Culture - Preliminary Blood No Growth after 72 hours Assessment and Plan Time with Patient: Less than 30
[2022-06-30] MEDS: HYDROcodone/APAP 5-325MG 1 EACH TAB PO PRN (16:20)
[2022-06-30] MEDS: MULTIVITAMINS, THERA 1 EACH TAB PO SCH (22:40)
[2022-06-30] MEDS: ATORVASTATIN 40 MG TAB PO SCH (22:40)
[2022-06-30] MEDS: ALPRAZolam 0.25 MG TAB PO PRN (22:44)
[2022-07-01] MEDS: ALBUTEROL NEBULIZED 2.5 MG/3 ML INHALATION PRN (07:39)
[2022-07-01] MEDS: ENOXAPARIN 40 MG/0.4 ML SYRINGE SQ SCH (08:25)
[2022-07-01] MEDS: PANTOPRAZOLE 40 MG TABLET PO SCH (08:25)
[2022-07-01] MEDS: amLODIPine 10 MG TAB PO SCH (08:25)
[2022-07-01] MEDS: PIPERACILLIN-TAZOBACTAM 3.375 GM in SODIUM CHLORIDE 0.9% 100 ML IVPB SCH ×2 (08:25→16:28)
[2022-07-01] MEDS: CHOLECALCIFEROL 125 MCG (5000 IU) TABLET PO SCH (08:25)
--- NOTE | 2022-07-01 11:17 | P.PN ---
Subjective Progress Note Date: 07/01/22 Principal diagnosis: Appendicitis. This is a pleasant 71-year-old male patient with a known history of prostate cancer with previous surgery in 2015, previous small bowel obstruction resolved on its own, hypertension, anxiety, hyperlipidemia, gastroesophageal reflux disease, daily alcohol use, nonsmoker. He presented here to the emergency room on 06/26/2022 with complaints of abdominal pain and bloating. He was found to have acute appendicitis and had undergone a diagnostic laparoscopic, exploratory laparotomy, lysis of adhesions, appendectomy and partial omentumectomy on 06/27/2022. We're consulted today the patient had been having migraines issues with hypoxemia requiring oxygen at 2 L/m per nasal cannula with O2 saturations in the 90s. He is afebrile. Hemodynamically stable. Chest x-ray today reveals cardiomegaly with possible bilateral pleural effusions. No evidence of focal consolidation or pneumothorax. Blood cultures revealed no growth. White count 9.2. Hemoglobin 12.8. Sodium 141. Potassium 3.8. BUN 12. Creatinine 0.83. Bicarb 28. He remains on Zosyn. Lovenox for DVT. Pain is well controlled. He is seen today in consultation on the regular medical floor. He is currently sitting up in a chair at the bedside. Maintaining good O2 saturations in the 90s on 3 L. He denies any worsening shortness of breath. No cough or congestion. No hemoptysis. He could be doing better with his incentive spirometer. Patient was reevaluated today on 06/30/21, patient is feeling much better today, he is now on room air, he is doing well with incentive spirometry, and chest x- ray continues to show some atelectasis and small bilateral pleural effusions, he was given Lasix yesterday, and he was given another dose of Lasix this morning. Nonetheless the patient is doing great, and he is clinically much better today compared to yesterday, not to mention he is off oxygen completely. Remains on antibiotics for his appendicitis. Patient has no bowel movements yet, he is not passing any gas, is mostly on liquids at this point as per surgery. CBC is unremarkable electrolytes are normal renal profile is normal, follow-up chest x- ray this morning showed cardiomegaly, pulmonary vascular congestion, and small bilateral pleural effusions as well as atelectasis Progress note dated 07/01/2022. The patient is seen today in room 465. The patient's on room air. No IV fluids. The patient is doing much better. No new lab data today. The last labs done on 06/29/2022. Blood cultures are negative 2. Chest x-ray from yesterday shows cardiomegaly, bilateral effusions, and pulmonary vascular congestion. Objective - Vital Signs Vital signs: Vital Signs Temp 97.7 F 07/01/22 07:25 Pulse 88 07/01/22 07:51 Resp 16 07/01/22 08:34 BP 174/97 07/01/22 07:25 Pulse Ox 95 07/01/22 07:41 FiO2 Intake & Output 06/30/22 07/01/22 07/01/22 18:59 06:59 18:59 Intake Total 700 200 Output Total 3 0 0 Balance 697 0 200 Intake: Oral 700 200 Output: Urine 3 0 0 Other: Voiding Method Toilet Toilet Toilet # Voids 2 2 # Bowel Movements 2 - Exam No acute distress, oriented 3. Currently on room air. No respiratory distress. HEENT examination is grossly unremarkable. Neck supple. Full range of motion. No adenopathy thyromegaly or neck vein di stention. Cardiovascular examination reveals regular rhythm rate. S1-S2 normal. No S3 or S4. No discernible murmur noted. Heart rate 88 bpm. Lungs reveal minimal scattered rhonchi. No wheezes. No crackles. Breath sounds are equal bilaterally. Room air saturation 95%. Abdomen soft bowel sounds are heard. No masses or tenderness. Extremities are intact. No cyanosis clubbing or edema. Skin is without rash or lesion. Neurologic examination is brief but nonfocal. - Labs CBC & Chem 7: 06/29/22 07:09 06/29/22 07:09 Labs: Microbiology - Last 24 Hours (Table) 06/26/22 20:00 Blood Culture - Preliminary Blood No Growth after 96 hours 06/26/22 19:45 Blood Culture - Preliminary Blood No Growth after 96 hours Assessment and Plan Assessment: Acute appendicitis, status post diagnostic laparoscopy, exploratory laparotomy, lysis of adhesions, appendectomy, partial omentectomy, on 06/27/2022, postop day #4. Acute hypoxemic respiratory failure secondary to atelectasis, and fluid overload. Bilateral pleural effusions. Lifelong nonsmoker. History of hypertension. Hyperlipidemia. GERD. Anxiety. History of previous partial small bowel obstruction without surgical intervention. History of prostate cancer, status post surgery, 2015. Plan: Plan dated 07/01/2022. The patient appears to be doing much better. The patient's currently on room air. He is not receiving any IV fluids. The patient was aggressively diuresed by my partner. The patient continues on incentive spirometer. We recommend ambulation, and hopeful discharge in the near future. No additional recommendations are made. Labs, x-rays, and medications are reviewed. Prognosis is guarded. Time with Patient: Less than 30
--- NOTE | 2022-07-01 15:33 | P.PN ---
Subjective Progress Note Date: 07/01/22 Patient is admitted for acute appendicitis status post appendectomy. Patient is clinically doing well. 06/30/2022 Patient is postoperative day #3 appendectomy, diagnostic laparoscopy, exploratory laparotomy, lysis of adhesions and partial omentectomy. He is passing gas, has not had BM yet feels he may have one today. On full liquid diet. Pulmonary was consulted yesterday for further evaluation as patient has required oxygen support. Today he is evaluated while on room air and he states his saturations have been around 97%. He received a dose of lasix yesterday and also IV fluids were discontinued. He reports improvement in his breathing. He continues on IV zosyn. He had a follow up chest xray today showing pulmonary vascular congestion and also bilateral pleural effusions and he will be given another dose of IV lasix. SerumBNP 123. Echocardiogram has been ordered and pending at this time. Has been following with Dr. Reynoso and states he was scheduled to have routine echo in August. No prior history of heart failure. 07/01/2022 Patient is postop day #4 appendectomy, diagnostic laparoscopy, exploratory lap, lysis of adhesions and partial omentectomy. He was hoping to go home today. He has been advanced to regular diet and will be monitored overnight. He continues on IV zosyn. He is pending echocardiogram at this time, He does have one scheduled in August of this year outpatient. Medically he is doing well. Maintaining oxygen saturations on room air. Review of Systems Constitutional: Denied any fatigue denied any fever. Cardio vascular: denied any chest pain, palpitations Gastrointestinal denied any nausea vomiting Pulmonary: Denied any shortness of breath cough Neurologic denied any new focal deficits All inpatient medications were reviewed and appropriate changes in these medications as dictated in the interval history and assessment and plan. PHYSICAL EXAMINATION: GENERAL: The patient is alert and oriented x3, not in any acute distress. Well developed, well nourished. HEENT: Pupils are round and equally reacting to light. EOMI. No scleral icterus. No conjunctival pallor. Normocephalic, atraumatic. No pharyngeal erythema. No thyromegaly. CARDIOVASCULAR: S1 and S2 present. No murmurs, rubs, or gallops. PULMONARY: Chest is clear to auscultation, no wheezing or crackles. ABDOMEN: Soft, nontender, nondistended, normoactive bowel sounds. No palpable organomegaly. Post surgical abdomen stapled midline incision. MUSCULOSKELETAL: No joint swelling or deformity. EXTREMITIES: No cyanosis, clubbing, or pedal edema. NEUROLOGICAL: Gross neurological examination did not reveal any focal deficits. SKIN: No rashes. Assessment and plan Acute appendicitis status post op day #4 appendectomy patient is on Zosyn diet has been upgraded. -Acute hypoxic respiratory failure likely from fluid overload patient had chest xray showing vascular congestion and pulmonary overload, treated with IV lasix. -Hypertension blood pressure is fairly well controlled continue with present regimen -Hyperlipidemia -Gastroesophageal reflux disease -History of prostate cancer status post surgery GI prophylaxis DVT prophylaxis Full Code Plan Echocardiogram is currently pending at this time. He is being followed closely by pulmonary services. He has been able to tolerate room air and reports breathing better. Diet has been upgraded by primary. The impression and plan of care has been dictated by Hallie Nelson Nurse Practitioner as directed. Dr. Maxx MD I have performed a history and physical examination and medical decision making of this patient, discussed the same with the dictator, and agree with the dictators assessment and plan as written, documented as a scribe. Based on total visit time, I have performed more than 50% of this visit. Objective - Vital Signs Vital signs: Vital Signs Temp 97.7 F 07/01/22 07:25 Pulse 88 07/01/22 07:51 Resp 16 07/01/22 07:51 BP 174/97 07/01/22 07:25 Pulse Ox 95 07/01/22 07:41 FiO2 Intake & Output 06/30/22 07/01/22 07/01/22 18:59 06:59 18:59 Intake Total 700 Output Total 3 0 Balance 697 0 Intake: Oral 700 Output: Urine 3 0 Other: Voiding Method Toilet Toilet # Voids 2 - Labs CBC & Chem 7: 06/29/22 07:09 06/29/22 07:09 Labs: Microbiology - Last 24 Hours (Table) 06/26/22 20:00 Blood Culture - Preliminary Blood No Growth after 96 hours 06/26/22 19:45 Blood Culture - Preliminary Blood No Growth after 96 hours Assessment and Plan Time with Patient: Less than 30
--- NOTE | 2022-07-01 18:48 | P.PN ---
Progress Note - Text Progress Note Date: 07/01/22 Patient feels slightly better today. He had a small bowel movement this morning. On exam vital signs are stable. Abdomen soft. Incisions clean dry tach. Status post open appendectomy. Patient will have his diet advanced. We can be discharged home tomorrow.
[2022-07-01] MEDS ORDERED: hydrALAZINE HCL 20 MG/ML 1 ML VIAL IVP STA (21:29)
[2022-07-01] MEDS: ATORVASTATIN 40 MG TAB PO SCH (21:43)
[2022-07-01] MEDS: MULTIVITAMINS, THERA 1 EACH TAB PO SCH (21:43)
[2022-07-01] MEDS: ALPRAZolam 0.25 MG TAB PO PRN (21:49)
[2022-07-02] MEDS: PIPERACILLIN-TAZOBACTAM 3.375 GM in SODIUM CHLORIDE 0.9% 100 ML IVPB SCH ×2 (00:09→08:21)
[2022-07-02] MEDS: ENOXAPARIN 40 MG/0.4 ML SYRINGE SQ SCH (08:20)
[2022-07-02] MEDS: CHOLECALCIFEROL 125 MCG (5000 IU) TABLET PO SCH (08:21)
[2022-07-02] MEDS: ALPRAZolam 0.25 MG TAB PO PRN (08:21)
[2022-07-02] MEDS: amLODIPine 10 MG TAB PO SCH (08:21)
[2022-07-02] MEDS: PANTOPRAZOLE 40 MG TABLET PO SCH (08:21)
--- NOTE | 2022-07-02 12:17 | P.PN ---
Subjective Progress Note Date: 07/02/22 Principal diagnosis: Appendicitis. This is a pleasant 71-year-old male patient with a known history of prostate cancer with previous surgery in 2015, previous small bowel obstruction resolved on its own, hypertension, anxiety, hyperlipidemia, gastroesophageal reflux disease, daily alcohol use, nonsmoker. He presented here to the emergency room on 06/26/2022 with complaints of abdominal pain and bloating. He was found to have acute appendicitis and had undergone a diagnostic laparoscopic, exploratory laparotomy, lysis of adhesions, appendectomy and partial omentumectomy on 06/27/2022. We're consulted today the patient had been having migraines issues with hypoxemia requiring oxygen at 2 L/m per nasal cannula with O2 saturations in the 90s. He is afebrile. Hemodynamically stable. Chest x-ray today reveals cardiomegaly with possible bilateral pleural effusions. No evidence of focal consolidation or pneumothorax. Blood cultures revealed no growth. White count 9.2. Hemoglobin 12.8. Sodium 141. Potassium 3.8. BUN 12. Creatinine 0.83. Bicarb 28. He remains on Zosyn. Lovenox for DVT. Pain is well controlled. He is seen today in consultation on the regular medical floor. He is currently sitting up in a chair at the bedside. Maintaining good O2 saturations in the 90s on 3 L. He denies any worsening shortness of breath. No cough or congestion. No hemoptysis. He could be doing better with his incentive spirometer. Patient was reevaluated today on 06/30/21, patient is feeling much better today, he is now on room air, he is doing well with incentive spirometry, and chest x- ray continues to show some atelectasis and small bilateral pleural effusions, he was given Lasix yesterday, and he was given another dose of Lasix this morning. Nonetheless the patient is doing great, and he is clinically much better today compared to yesterday, not to mention he is off oxygen completely. Remains on antibiotics for his appendicitis. Patient has no bowel movements yet, he is not passing any gas, is mostly on liquids at this point as per surgery. CBC is unremarkable electrolytes are normal renal profile is normal, follow-up chest x- ray this morning showed cardiomegaly, pulmonary vascular congestion, and small bilateral pleural effusions as well as atelectasis Progress note dated 07/01/2022. The patient is seen today in room 465. The patient's on room air. No IV fluids. The patient is doing much better. No new lab data today. The last labs done on 06/29/2022. Blood cultures are negative 2. Chest x-ray from yesterday shows cardiomegaly, bilateral effusions, and pulmonary vascular congestion. Progress note dated 07/02/2022. The patient's doing well. He is on room air. He's not receiving any IV fluids. The patient is hoping to be discharged soon. The patient is currently on Zosyn. No pulmonary complaints. No new labs today. Labs from June 29 have been reviewed. Labs, x-rays, and medications are reviewed as well. Objective - Vital Signs Vital signs: Vital Signs Temp 97.6 F 07/02/22 07:53 Pulse 87 07/02/22 07:53 Resp 15 07/02/22 07:53 BP 126/77 07/02/22 07:53 Pulse Ox 95 07/02/22 07:53 FiO2 Intake & Output 07/01/22 07/02/22 07/02/22 18:59 06:59 18:59 Intake Total 1200 Output Total 0 Balance 1200 Intake: Intake, IV Titration 200 Amount Piperacillin-Tazobactam 3 200 .375 gm In Sodium Chloride 0.9% 100 ml @ 25 mls/hr IVPB Q8HR [facility] Rx# :[id number] Oral 1000 Output: Urine 0 Other: Voiding Method Toilet Toilet # Voids 3 4 # Bowel Movements 2 - Exam No acute distress, oriented 3. Currently on room air. No respiratory distress. HEENT examination is grossly unremarkable. Neck supple. Full range of motion. No adenopathy thyromegaly or neck vein distention. Cardiovascular examination reveals regular rhythm rate. S1-S2 normal. No S3 or S4. No discernible murmur noted. Heart rate 87 bpm. Lungs reveal minimal scattered rhonchi. No wheezes. No crackles. Breath sounds are equal bilaterally. Room air saturation 96 %. Abdomen soft bowel sounds are heard. No masses or tenderness. Extremities are intact. No cyanosis clubbing or edema. Skin is without rash or lesion. Neurologic examination is brief but nonfocal. - Labs CBC & Chem 7: 06/29/22 07:09 06/29/22 07:09 Labs: Microbiology - Last 24 Hours (Table) 06/26/22 20:00 Blood Culture - Preliminary Blood No Growth after 120 hours 06/26/22 19:45 Blood Culture - Preliminary Blood No Growth after 120 hours Assessment and Plan Assessment: Acute appendicitis, status post diagnostic laparoscopy, exploratory laparotomy, lysis of adhesions, appendectomy, partial omentectomy, on 06/27/2022, postop day #5. Acute hypoxemic respiratory failure secondary to atelectasis, and fluid overload. Bilateral pleural effusions. Lifelong nonsmoker. History of hypertension. Hyperlipidemia. GERD. Anxiety. History of previous partial small bowel obstruction without surgical intervention. History of prostate cancer, status post surgery, 2014. Plan: Plan dated 07/01/2022. The patient appears to be doing much better. The patient's currently on room air. He is not receiving any IV fluids. The patient was aggressively diuresed by my partner. The patient continues on incentive spirometer. We recommend ambulation, and hopeful discharge in the near future. No additional recommendations are made. Labs, x-rays, and medications are reviewed. Prognosis is guarded. Plan dated 07/02/2022. The patient's doing very well. Moving forward, we will see the patient only as needed. No additional recommendations are made. The patient's on room air. We encourage him to continue to use the incentive spirometer. Labs, x-rays, and medications are all reviewed. Time with Patient: Less than 30
--- NOTE | 2022-07-02 13:26 | P.DS ---
Providers Date of admission: 06/28/22 09:16 Expected date of discharge: 07/02/22 Attending physician: Skip Ramos Consults: 06/26/22 19:27 Consult Physician Routine Consulting Provider: Nathan Hernandez Consult Reason/Comments: medical management Do you want consulting provider notified?: Yes Primary care physician: Paul Camara [facility] Course: Discharge diagnosis 1. Acute appendicitis and adhesions status post diagnostic laparoscopy, exploratory laparotomy, lysis of adhesions, appendectomy and partial omentectomy 2. Fluid overload resolved Hospital course This is a 71-year-old male who presented to the ER with right lower quadrant abdominal pain. Computed tomography scan in terms of acute appendicitis. Patient is status post diagnostic laparoscopy, exploratory laparotomy, lysis of adhesions, appendectomy and partial omentectomy. Patient's pain is controlled. He is tolerating diet. He is afebrile. Incision site clean dry and intact. He has been up and ambulate in. He is having bowel movements. He is stable for discharge. Please refer to chart for any further details. Physician Ar Manager note has been reviewed by physician. Signing provider agrees with the documented findings, assessment, and plan of care. Patient Condition at Discharge: Stable Plan - Discharge Summary Discharge Rx Participant: No New Discharge Prescriptions: New Acetaminophen Tab [Tylenol] 650 mg PO Q6HR PRN tab PRN Reason: Mild Pain Or Fever >= 100.5 Cholecalciferol [Vitamin D3 (125 Mcg = 5000 Iu)] 125 mcg PO DAILY tab Propranolol [Inderal] 10 mg PO BID PRN #60 tab PRN Reason: heart palpitations Multivitamins, Thera [Multivitamin (formulary)] 1 each PO HS tab Continue Omeprazole 20 mg PO HS amLODIPine [Norvasc] 10 mg PO DAILY ALPRAZolam [Xanax] 0.25 mg PO HS Atorvastatin [Lipitor] 40 mg PO HS Docusate [Colace] 100 mg PO PC-BID@1200,1700 ALPRAZolam [Xanax] 0.25 mg PO BID PRN PRN Reason: Anxiety Discharge Medication List Omeprazole 20 mg PO HS 11/03/13 [History] amLODIPine [Norvasc] 10 mg PO DAILY 11/03/13 [History] ALPRAZolam [Xanax] 0.25 mg PO HS 02/09/15 [History] Atorvastatin [Lipitor] 40 mg PO HS 05/30/21 [History] ALPRAZolam [Xanax] 0.25 mg PO BID PRN 06/26/22 [History] Docusate [Colace] 100 mg PO PC-BID@1200,1700 06/26/22 [History] Acetaminophen Tab [Tylenol] 650 mg PO Q6HR PRN tab 07/02/22 [Rx] Cholecalciferol [Vitamin D3 (125 Mcg = 5000 Iu)] 125 mcg PO DAILY tab 07/02/22 [Rx] Multivitamins, Thera [Multivitamin (formulary)] 1 each PO HS tab 07/02/22 [Rx] Propranolol [Inderal] 10 mg PO BID PRN #60 tab 07/02/22 [Rx] Follow up Appointment(s)/Referral(s): Paul Fajardo MD [Primary Care Provider] - 1 Week Skip Ramos MD [STAFF PHYSICIAN] - 1 Week Activity/Diet/Wound Care/Special Instructions: No lifting over 10 pounds Shower daily. No soaking or tub baths for 2 weeks Very light activity until you are reevaluated at your follow up appointment with your surgeon Discharge Disposition: HOME SELF-CARE
[2022-07-02 14:51] VITALS: BP 166/93; PULSE 97; RESP 17; TEMP 97.5
--- NOTE | 2022-07-02 16:05 | CA ---
Transthoracic Echo Report Name: Arben Ochoa Age: 71 Gender: M : 1950 Exam Date: 07/02/2022 09:58 Exam Location: [facility] Ht (in): 69 Wt (lb): 184 Ordering Physician: Benita Castellano NP-C Attending/Referring Phys: [employer] Conveyor Operator Dandy Garg RDCS Procedure CPT: Indications: chf Cardiac Hx: Technical Quality: fair Contrast 1: Total Dose (mL): Contrast 2: Total Dose (mL): MEASUREMENTS (Male / Female) Normal Values 2D ECHO LV Diastolic Diameter PLAX 4.6 cm 4.2 - 5.9 / 3.9 - 5.3 cm LV Systolic Diameter PLAX 3.5 cm IVS Diastolic Thickness 1.6 cm 0.6 - 1.0 / 0.6 - 0.9 cm LVPW Diastolic Thickness 1.2 cm 0.6 - 1.0 / 0.6 - 0.9 cm LV Relative Wall Thickness 0.6 RV Internal Dim ED PLAX 3.2 cm LA Volume 48.2 cm??? 18 - 58 / 22 - 52 cm??? M-MODE Aortic Root Diameter MM 3.0 cm LA Systolic Diameter MM 5.2 cm LA Ao Ratio MM 1.7 MV E Point Septal Separation 0.5 cm AV Cusp Separation MM 1.9 cm DOPPLER AV Peak Velocity 166.7 cm/s AV Peak Gradient 11.1 mmHg LVOT Peak Velocity 117.4 cm/s LVOT Peak Gradient 5.5 mmHg MV Area PHT 4.5 cm??? MR Peak Velocity 289.8 cm/s MR Peak Gradient 33.6 mmHg Mitral E Point Velocity 78.3 cm/s Mitral A Point Velocity 112.2 cm/s Mitral E to A Ratio 0.7 MV Deceleration Time 169.8 ms TR Peak Velocity 214.2 cm/s TR Peak Gradient 18.4 mmHg PV Peak Velocity 100.7 cm/s PV Peak Gradient 4.1 mmHg FINDINGS Left Ventricle Moderately increased septal wall thickness. Left ventricular ejection fraction is estimated at 55 %. Right Ventricle Normal right ventricular size and function. Right Atrium Normal right atrial size. Left Atrium Normal left atrial size. Mitral Valve Structurally normal mitral valve. Mild mitral regurgitation. Aortic Valve Trileaflet aortic valve. No aortic regurgitation. No aortic stenosis. Tricuspid Valve Structurally normal tricuspid valve. Mild tricuspid regurgitation. Pulmonic Valve Structurally normal pulmonic valve. Pericardium No pericardial effusion. Aorta Normal size aortic root and proximal ascending aorta. CONCLUSIONS LVH with preserved systolic function Previewed by: Dr. Domingo Garcia MD (Electronically Signed) Final Date: 02 July 2022 16:04
== END 2022-07-02 14:02 | disposition home or self-care (01) | DRG 326 ==
LOC: EC 14:50 → 4SSUR 19:28 → OBSVTOIN 06-28 09:16 → 4SSUR 07-01 18:09
PROVIDERS: ADMIT Surgery; ATTEND Surgery
PROC: 0DT Gastrointestinal System, Resection (ICD-10-PCS; 2022-06-27)
PROC: 0DNW0ZZ Release Peritoneum, Open Approach (ICD-10-PCS; 2022-06-27)
PROC: 0DBU0ZZ Excision of Omentum, Open Approach (ICD-10-PCS; 2022-06-27)
PROC: 0WJG4ZZ Inspection of Peritoneal Cavity, Percutaneous Endoscopic Approach (ICD-10-PCS; 2022-06-27)
PROC: 0DTJ0ZZ Resection of Appendix, Open Approach (ICD-10-PCS; principal; 2022-06-27 07:30)
DX: K35.80 Unspecified acute appendicitis (principal); J96.01 Acute respiratory failure with hypoxia; J90 Pleural effusion, not elsewhere classified; J98.11 Atelectasis; I10 Essential (primary) hypertension; C61 Malignant neoplasm of prostate; Z85.46 Personal history of malignant neoplasm of prostate; E78.5 Hyperlipidemia, unspecified; E87.70 Fluid overload, unspecified; F41.9 Anxiety disorder, unspecified; G43.909 Migraine, unspecified, not intractable, without status migrainosus; K21.9 Gastro-esophageal reflux disease without esophagitis; I08.1 Rheumatic disorders of both mitral and tricuspid valves; K66.0 Peritoneal adhesions (postprocedural) (postinfection); R32 Unspecified urinary incontinence; Z79.899 Other long term (current) drug therapy; Z85.3 Personal history of malignant neoplasm of breast; Z87.19 Personal history of other diseases of the digestive system; Z53.31 Laparoscopic surgical procedure converted to open procedure
CPT/HCPCS: 36415; 71045; 74018; 74177; 80048; 80053; 83605; 83690; 83880; 85025; 87040; 88304; 93306; 94640; 94760

== ENCOUNTER 2022-09-03 09:18 | Day surgery (SDC) | payer MEDICARE, OTHER ==
[2022-08-01 09:35] VITALS: BMI 27.4
[~2022-09-03 09:18] MED LIST changes: -DEXAMETHASONE SOD PHOSPHATE 4 MG/ML 1 ML VIAL IV ONE; -HYDROmorphone 0.5 MG/0.5 ML SYRINGE IVP PRN; -MIDAZOLAM 2 MG/2 ML VIAL IV PRN; -ONDANSETRON 4 MG/2 ML VIAL IVP ONE
[2022-09-03 09:46] VITALS: TEMP 96.7
[2022-09-03] MEDS ORDERED: IOPAMIDOL M200 10 ML VIAL ONE (10:24)
[2022-09-03] MEDS ORDERED: fentaNYL (PF) 50 MCG/ML 2 ML AMP ONE (10:24)
[2022-09-03] MEDS ORDERED: methylPREDNISolone ACETATE 40 MG/ML 1 ML VIAL ONE (10:24)
[2022-09-03] MEDS ORDERED: MIDAZOLAM 2 MG/2 ML VIAL ONE (10:24)
--- NOTE | 2022-09-03 10:35 | P.PCN ---
Date of Procedure: 09/03/22 Procedure(s) Performed: PREOPERATIVE DIAGNOSIS: 1- Lumbar Degenerative Disc Diseases 2-Lumbar spondylosis with Facet arthropathy without myelopathy. POSTOPERATIVE DIAGNOSIS: Same as preop diagnosis. PROCEDURE 1. Lumbar epidural steroid injection under fluoroscopic guidance at the L4-5 level. (Fluoroscopy imaging was available in radiology department) 2. Lumbar epidurogram. ANESTHESIA: moderate sedation with intravenous Versed 1 mg ,and fentanyle 50 Mcg Sedation start time : Sedation end time : EBL: Minimal PROCEDURE INDICATION: The patient with low back pain and radiculitis symptoms unresponsive to conservative treatment. Fluoroscopy was used to optimize visualization of the needle placement and to maximize safety. PROCEDURE DESCRIPTION / TECHNIQUE: The patient was seen and identified in the preoperative area. Risks, benefits, complications including but not limited to infections ,bleeding ,allergic reaction to the medications ,nerve damage and not complete pain releife , and alternatives were discussed with the patient. The patient agreed to proceed with the procedure and signed the consent. IV was started, and vital signs were stable. Patient was taken to the OR and time out was completed. The patient was placed in the prone position on procedure table and a pillow was placed under the abdomen to reduce lumbar lordosis. The lumbosacral area was prepped and draped in the usual sterile fashion.ere closely monitored during the procedure. Conscious sedation was used during the procedure to decrease patients anxiety. Vital signs was monitered during the entire procedure. Using anterior-posterior fluoroscopy, the L4-5 interlaminar space was identified and the skin over this site was marked and then infiltrated with 1% lidocaine subcutaneously. Subsequently, a 20-gauge Tuohy epidural needle was inserted and advanced toward the epidural space using the ``Loss of resistance technique and guided by AP and lateral fluoroscopy. The correct needle position in the epidural space was verified with the injection of 2 mL of the water soluble contrast dye Isovue 200 contrast and observing an excellent epidurogram with the epidural spread of the dye, after negative aspiration for blood and CSF and in the absence of paresthesias. Again after negative aspiration, a 6 ml mixture containing 40 mg of Depo-medrol ( Preservetive Free ), and 2 ml of preservative free Normal Saline, and 2 ml of preservative free lidocaine 1% solution was injected and a washout of epidurogram was seen. Needle was withdrawn intact, skin was cleansed, and bandages were applied. COMPLICATIONS: None DISPOSITION / PLANS: The patient was placed in a supine position and transferred to the recovery area in a stable condition for observation. There was no evidence of lower extremity motor or sensory deficit after the procedure. Patient was discharged from the recovery room after meeting discharge criteria. Home discharge instructions were given to the patient by the staff. The patient was reexamined prior to discharge. The patient will schedule a follow up in the clinic in 2-4 weeks.
--- NOTE | 2022-09-03 10:50 | FL ---
EXAMINATION TYPE: FL guided pain mgmt statistic DATE OF EXAM: 09/03/2022 HISTORY: Fluoroscopy time DAP - 0.24340 of fluoroscopy provided. IMPRESSION: 1. Fluoroscopy time.
[2022-09-03] MEDS ORDERED: IV FLUID CONTINUATION 600 ML IV ONE (10:56)
[2022-09-03 10:57] VITALS: BP 116/69; PULSE 53; RESP 18
== END 2022-09-03 11:10 | disposition home or self-care (01) ==
LOC: ORPAIN 09:18
PROVIDERS: ATTEND Specialist
DX: M51.16 Intervertebral disc disorders with radiculopathy, lumbar region (principal); M47.26 Other spondylosis with radiculopathy, lumbar region
CPT/HCPCS: 62323; J2250; J1030; J3010; Q9966

== ENCOUNTER → 2022-09-23 | Outpatient (CLI) | payer MEDICARE, OTHER ==
[2022-09-23 11:16] VITALS: BP 144/85; PULSE 53; RESP 18; TEMP 98.7
--- NOTE | 2022-09-23 16:28 | P.PAINPG ---
PQRS Measure Charge Sheet Comment: HISTORY OF PRESENT ILLNESS: 71 yr old male as a referral w severe and chronic LBP secondary to DDD, spondylosis and facet arthropathy without myelopathy for evaluation of TRACEE L4- L5. PT states he received 100 % pain relief x 3 wks s/p procedure. Pt states pain level is provoked at 2 /10 in intensity, constant, localized in the lower lumbar spine, sore in character w shooting pain towards the BLEs. Pain is provoked by lifting. Pain is alleviated by massage & chiropractic treatments x 8 wks which ended in May 2022, sitting, laying supine, repositioning and rest. REVIEW OF ORGAN SYSTEMS: CONSTITUTIONAL: No fevers or chills. No recent weight loss. NEUROLOGICAL: + numbness and tingling along the distal extremities. No seizure disorders or headaches. MUSCULOSKELETAL: + pain PSYCHIATRIC: Denies current depression or suicidal thoughts. Physical Examinations : Constitutional : Cooperative , not in acute distress . Neurologic : Cranial nerve II to XII intact. No focal neurological deficits. Psychiatric : alert & oriented x 3. Matching mood & appropriate affect. Judgment & insight intact. Musculoskeletal : Cervical Spine Motor strength in the deltoid and biceps: Normal right side. Normal Left side Motor strength biceps and the wrist extensors: Normal right side . Normal left side Motor strength in the triceps muscle: Normal right side. Normal left side Deep tendon reflexes: Normal at the biceps. Normal at Brachioradialis. Normal at triceps Vertebral body tenderness to deep palpation over Cervical facet loading test: positive bilaterally Spurling test: positive bilaterally Neck distraction test: positive bilate rally Chilo sign: positive bilaterally Lumbar spine Motor strength lower extremities ,thigh and legs 5/5 Right side , 5/5 Left side Deep tendon reflexes : Normal Knee Jerk. Normal Ankle Jerk Vertebral body tenderness over Lumbar facet Loading Test: positive Right / positive Left Range of motion of the lumbar spine Flexion 30 degrees, extension 10 degrees Straight Leg Raise test: Left/ Right positive at degree Eris test: positive right / positive left. Severe tenderness over the Sacroiliac joint on the Right / Left sides Gaenslen test: positive bilaterally Seated flexion test: positive bilaterally. Sacral spine : Severe tenderness over the Sacroiliac joint: right side / left side Range of motion: Flexion of the lumbar spine <60 degrees Range of motion: Extension of the lumbar spine <20 degrees Gaenslen's Test positive Calvin's Test positive Eris test: positive right side / left side Thigh Thrust Test Sacral Thrust Test Assessment/ Plan : Lumbar DDD Pt exhibited sufficient pain relief s/p procedure. He will manage residual pain at home and may return to the clinic as needed. All questions answered. I have spent greater than 30 minutes on patient care today. Dr Johnson was available by phone for the evaluation of this patient. The time was used to review the medical records including relevant urine studies and Prescription history (MAPs), review of the available imaging, evaluation and examination of the patient, coordination of care with the medical staff and if applicable referring physicians, as well as creation of the medical record PQRS Narrative: Smoking Status Never smoker Hx Alcohol Use (MH) Yes: SEVERAL DRINKS DAILY Home Medications: Ambulatory Orders Omeprazole 20 mg PO HS 11/03/13 amLODIPine [Norvasc] 10 mg PO DAILY 11/03/13 ALPRAZolam [Xanax] 0.25 mg PO HS 02/09/15 Atorvastatin [Lipitor] 40 mg PO HS 05/30/21 ALPRAZolam [Xanax] 0.25 mg PO BID PRN 06/26/22 Docusate [Colace] 100 mg PO TID 06/26/22 Multivitamins, Thera [Multivitamin (formulary)] 1 each PO HS tab 07/02/22 Cholecalciferol [Vitamin D3 (25 Mcg = 1000 Iu)] 50 mcg PO DAILY 08/01/22 Metoprolol Tartrate [Lopressor] 25 mg PO BID 08/01/22 Vitamin B Complex 1 each PO DAILY 08/29/22 Controlled Substance Measures - Controlled Substance Measures Is patient prescribed a controlled substance at discharge?: No
== END ==
LOC: PNWHC3 09:56
PROVIDERS: ATTEND Specialist
DX: M51.36 Other intervertebral disc degeneration, lumbar region (principal)
CPT/HCPCS: 99211

== ENCOUNTER → 2022-10-16 | Outpatient (CLI) | payer MEDICARE, OTHER ==
[2022-10-16 12:48] VITALS: BP 135/80; PULSE 61; RESP 18; TEMP 98.1
--- NOTE | 2022-10-16 14:36 | P.PAINPG ---
PQRS Measure Charge Sheet Comment: A 71 yr old male with a history of severe and chronic LBP secondary to lumbar DDD and spondylosis with facet arthropathy without myelopathy presents today for LBP. Pain level is provoked at 7/10 in intensity, constant, localized in the R lower lumbar spine, dull/ achy/ sharp in character w shooting towards the R hip. Pain is provoked by standing / walking for 5 min. Pain is alleviated with PT x 8 wks in May 2022 which was ineffective, chiropractic treatments weekly x 8 wks in Mar 2022 without relief, medications, heat, hot showers, sitting, repositioning and rest. Interventional pain procedures completed include TRACEE L4-L5 x1, R TFESI L4-5 x2 Patient is currently on Ibu Patient denies any side effects of the medication(s), denies excessive drowsiness or sleepiness, denies suicidal ideation and reports that the current pain medication is helping to control the pain and improve activities of daily living. Patient denies any motor or sensory deficits. Patient denies any fever or night sweats, denies any change in the bowel movements or urination. Physical Examination: -Constitutional: Cooperative. Not in acute distress . - Neurologic: Cranial nerve II to XII intact. No focal neurological deficits. - Psychatric: Alert & oriented x 3. Matching mood & appropriate affect. Judgment and insight intact. - Musculoskeletal: Cervical spine: Muscle bulk/ tone/ strength in the bilateral upper extremities normal Vertebral body tenderness to palpation over Spurling test positive Distraction test positive Facet loading test positive TTP Thoracic spine Muscle bulk / tone/ strength in the bilateral paraspinal muscles normal Vertebral body tender to palpation over Facet loading test positive TTP Lumbar spine: Motor bulk/ tone/ strength lower extremities , thigh and legs : 5/5 Deep tendon reflexes : Normal Knee Jerk. Normal Ankle Jerk . Vertebral body tenderness to palpation over L4 Lumbar Facet Loading Test positive Straight Leg Raise: positive at 30 degrees right side/ left side Gaenslen's Test positive Sacral spine : Severe tenderness over the Sacroiliac joint: right side / left side Range of motion: Flexion of the lumbar spine <60 degrees Range of motion: Extension of the lumbar spine <20 degrees Gaenslen's Test positive right side / left side Eris test: positive right side / left side Thigh Thrust Test positive right side / left side Sacral Thrust Test positive right side / left side Assessment and plan: Chronic LBP secondary to lumbar DDD, spondylosis with facet arthropathy without myelopathy Recommendation of TRACEE L4-5 #2. May need a series of injections for optimal pain relief. Risks, benefits of procedure discussed and pt verbalized understanding. Admits to anticoagulant use or medical history of diabetes. Protocol for discontinuation/ continuation of medications jay procedure discussed. All questions answered. I have spent less than 30 minutes on patient care today. Dr Johnson was available by phone for the evaluation of this patient. The time was used to review the medical records including relevant urine studies and Prescription history (MAPs), review of the available imaging, evaluation and examination of the patient, coordination of care with the medical staff and if applicable referring physicians, as well as creation of the medical record PQRS Narrative: Smoking Status Never smoker Hx Alcohol Use (MH) Yes: SEVERAL DRINKS DAILY Home Medications: Ambulatory Orders Omeprazole 20 mg PO HS 11/03/13 amLODIPine [Norvasc] 10 mg PO DAILY 11/03/13 ALPRAZolam [Xanax] 0.25 mg PO HS 02/09/15 Atorvastatin [Lipitor] 40 mg PO HS 05/30/21 ALPRAZolam [Xanax] 0.25 mg PO BID PRN 06/26/22 Docusate [Colace] 100 mg PO TID 06/26/22 Multivitamins, Thera [Multivitamin (formulary)] 1 each PO HS tab 07/02/22 Cholecalciferol [Vitamin D3 (25 Mcg = 1000 Iu)] 50 mcg PO DAILY 08/01/22 Metoprolol Tartrate [Lopressor] 25 mg PO BID 08/01/22 Vitamin B Complex 1 each PO DAILY 08/29/22 Controlled Substance Measures - Controlled Substance Measures Is patient prescribed a controlled substance at discharge?: No
== END ==
LOC: PNWHC3 12:14
PROVIDERS: ATTEND Specialist
DX: M51.36 Other intervertebral disc degeneration, lumbar region (principal); M47.816 Spondylosis without myelopathy or radiculopathy, lumbar region; G89.29 Other chronic pain; Z79.899 Other long term (current) drug therapy
CPT/HCPCS: 99211

== ENCOUNTER 2022-11-12 11:27 | Day surgery (SDC) | payer MEDICARE, OTHER ==
[2022-11-12 11:56] VITALS: TEMP 97
[2022-11-12] MEDS ORDERED: LACTATED RINGERS 1,000 ML IV ONE (12:02)
[2022-11-12] MEDS ORDERED: methylPREDNISolone ACETATE 40 MG/ML 1 ML VIAL ONE (12:16)
[2022-11-12] MEDS ORDERED: MIDAZOLAM 2 MG/2 ML VIAL ONE (12:16)
[2022-11-12] MEDS ORDERED: fentaNYL (PF) 50 MCG/ML 2 ML AMP ONE (12:16)
[2022-11-12] MEDS ORDERED: IOPAMIDOL M200 10 ML VIAL ONE (12:16)
--- NOTE | 2022-11-12 12:23 | P.PCN ---
Date of Procedure: 11/12/22 Procedure(s) Performed: PREOPERATIVE DIAGNOSIS: 1- Lumbar Degenerative Disc Diseases 2-Lumbar spondylosis with Facet arthropathy without myelopathy. POSTOPERATIVE DIAGNOSIS: Same as preop diagnosis. PROCEDURE 1. Lumbar epidural steroid injection under fluoroscopic guidance at the L4-5 level. (Fluoroscopy imaging was available in radiology department) 2. Lumbar epidurogram. ANESTHESIA: moderate sedation with intravenous Versed 1 mg ,and fentanyle 50 Mcg Sedation start time : 1216 Sedation end time : 1221 EBL: Minimal PROCEDURE INDICATION: The patient with low back pain and radiculitis symptoms unresponsive to conservative treatment. Fluoroscopy was used to optimize visualization of the needle placement and to maximize safety. PROCEDURE DESCRIPTION / TECHNIQUE: The patient was seen and identified in the preoperative area. Risks, benefits, complications including but not limited to infections ,bleeding ,allergic reaction to the medications ,nerve damage and not complete pain releife , and alternatives were discussed with the patient. The patient agreed to proceed with the procedure and signed the consent. IV was started, and vital signs were stable. Patient was taken to the OR and time out was completed. The patient was placed in the prone position on procedure table and a pillow was placed under the abdomen to reduce lumbar lordosis. The lumbosacral area was prepped and draped in the usual sterile fashion.ere closely monitored during the procedure. Conscious sedation was used during the procedure to decrease patients anxiety. Vital signs was monitered during the entire procedure. Using anterior-posterior fluoroscopy, the L4-5 interlaminar space was identified and the skin over this site was marked and then infiltrated with 1% lidocaine subcutaneously. Subsequently, a 20-gauge Tuohy epidural needle was inserted and advanced toward the epidural space using the ``Loss of resistance technique and guided by AP and lateral fluoroscopy. The correct needle position in the epidural space was verified with the injection of 2 mL of the water soluble contrast dye Isovue 200 contrast and observing an excellent epidurogram with the epidural spread of the dye, after negative aspiration for blood and CSF and in the absence of paresthesias. Again after negative aspiration, a 6 ml mixture containing 40 mg of Depo-medrol ( Preservetive Free ), and 2 ml of preservative free Normal Saline, and 2 ml of preservative free lidocaine 1% solution was injected and a washout of epidurogram was seen. Needle was withdrawn intact, skin was cleansed, and bandages were applied. COMPLICATIONS: None DISPOSITION / PLANS: The patient was placed in a supine position and transferred to the recovery area in a stable condition for observation. There was no evidence of lower extremity motor or sensory deficit after the procedure. Patient was discharged from the recovery room after meeting discharge criteria. Home discharge instructions were given to the patient by the staff. The patient was reexamined prior to discharge. The patient will schedule a follow up in the clinic in 2-4 weeks.
[2022-11-12] MEDS ORDERED: LACTATED RINGERS 1,000 ML IV SCH (12:26)
[2022-11-12] MEDS ORDERED: LIDOCAINE 1% (10MG/ML) FOR IV START INTRADERMA PRN (12:26)
[2022-11-12] MEDS ORDERED: IV FLUID CONTINUATION 800 ML IV ONE (12:32)
[2022-11-12 12:35] VITALS: RESP 18
--- NOTE | 2022-11-12 12:35 | FL ---
EXAMINATION TYPE: FL guided pain mgmt statistic DATE OF EXAM: 11/12/2022 HISTORY: Fluoroscopy time Total dose area product (DAP) in uGy*m?, mGy*cm? (or similar): 0.49512 IMPRESSION: 1. Fluoroscopy time.
[2022-11-12 12:45] VITALS: BP 122/76; PULSE 55
== END 2022-11-12 13:05 | disposition home or self-care (01) ==
LOC: ORPAIN 11:27
PROVIDERS: ATTEND Specialist
DX: M51.16 Intervertebral disc disorders with radiculopathy, lumbar region (principal); M47.26 Other spondylosis with radiculopathy, lumbar region
CPT/HCPCS: 62323; J2250; J1030; J3010; Q9966

== ENCOUNTER → 2022-12-05 | Outpatient (CLI) | payer MEDICARE, OTHER ==
[2022-12-05 11:25] VITALS: BP 130/75; PULSE 86; RESP 18; TEMP 98.5
--- NOTE | 2022-12-05 15:02 | P.PAINPG ---
PQRS Measure Charge Sheet Comment: A 72 yr old male with a history of severe and chronic LBP secondary to lumbar DDD and spondylosis with facet arthropathy without myelopathy presents today for evaluation s/p TRACEE L4-L5 #2. Pt states he experienced 100 % pain relief x 3 wks s/p procedure. Pain level is provoked at 7/10 in intensity, constant, localized in the R lower lumbar spine, achy in character w shooting towards the R hip. Pain is provoked by walking/ standing for periods of 10 min or more. Pain is alleviated with PTx 8 wks in Feb 2022, massage therapy weekly x 4 wks in Apr 2022, chiropractic treatments semi weekly x 8 wks in Apr 2022, heat, medications, topical, repositioning and rest. Interventional pain procedures completed include TRACEE L4-L5 x2 Patient is currently on Ibu, Voltaren gel Patient denies any side effects of the medication(s), denies excessive drowsiness or sleepiness, denies suicidal ideation and reports that the current pain medication is helping to control the pain and improve activities of daily living. Patient denies any motor or sensory deficits. Patient denies any fever or night sweats, denies any change in the bowel movements or urination. Physical Examination: -Constitutional: Cooperative. Not in acute distress . - Neurologic: Cranial nerve II to XII intact. No focal neurological deficits. - Psychatric: Alert & oriented x 3. Matching mood & appropriate affect. Judgment and insight intact. - Musculoskeletal: Cervical spine: Muscle bulk/ tone/ strength in the bilateral upper extremities normal Vertebral body tenderness to palpation over Spurling test positive Distraction test positive Facet loading test positive TTP Thoracic spine Muscle bulk / tone/ strength in the bilateral paraspinal muscles normal Vertebral body tender to palpation over Facet loading test positive TTP Lumbar spine: Motor bulk/ tone/ strength lower extremities , thigh and legs : 5/5 Deep tendon reflexes : Normal Knee Jerk. Normal Ankle Jerk . Vertebral body tenderness to palpation over L4 Xiao Test positive Lumbar Facet Loading Test positive Straight Leg Raise: positive at 30 degrees right side/ left side Gaenslen's Test positive Sacral spine : Severe tenderness over the Sacroiliac joint: right side / left side Range of motion: Flexion of the lumbar spine <60 degrees Range of motion: Extension of the lumbar spine <20 degrees Gaenslen's Test positive right side / left side Eris test: positive right side / left side Thigh Thrust Test positive right side / left side Sacral Thrust Test positive right side / left side Assessment and plan: Chronic LBP secondary to lumbar DDD, spondylosis with facet arthropathy without myelopathy Recommendation of TRACEE L4-L5 #3. May need a series of injections for optimal pain relief. Risks, benefits of procedure discussed and pt verbalized understanding. Admits to anticoagulant use or medical history of diabetes. Protocol for discontinuation/ continuation of medications jay procedure discussed. Minimal anesthesia provided, if clinically indicated, consisting of Versed and Fentanyl. All questions answered. I have spent less than 30 minutes on patient care today. Dr Johnson was available by phone for the evaluation of this patient. The time was used to review the medical records including relevant urine studies and Prescription history (MAPs), review of the available imaging, evaluation and examination of the patient, coordination of care with the medical staff and if applicable referring physicians, as well as creation of the medical record PQRS Narrative: Smoking Status Never smoker Hx Alcohol Use (MH) Yes: SEVERAL DRINKS DAILY Home Medications: Ambulatory Orders Omeprazole 20 mg PO HS 11/03/13 amLODIPine [Norvasc] 10 mg PO QAM 11/03/13 ALPRAZolam [Xanax] 0.25 mg PO HS 02/09/15 Atorvastatin [Lipitor] 40 mg PO HS 05/30/21 ALPRAZolam [Xanax] 0.25 mg PO BID PRN 06/26/22 Docusate [Colace] 100 mg PO TID 06/26/22 Multivitamins, Thera [Multivitamin (formulary)] 1 each PO HS tab 07/02/22 Cholecalciferol [Vitamin D3 (25 Mcg = 1000 Iu)] 50 mcg PO QAM 08/01/22 Metoprolol Tartrate [Lopressor] 25 mg PO BID 08/01/22 Vitamin B Complex 1 each PO QAM 08/29/22 Controlled Substance Measures - Controlled Substance Measures Is patient prescribed a controlled substance at discharge?: No
== END ==
LOC: PNWHC3 10:57
PROVIDERS: ATTEND Specialist
DX: M51.36 Other intervertebral disc degeneration, lumbar region (principal); M47.816 Spondylosis without myelopathy or radiculopathy, lumbar region; G89.29 Other chronic pain
CPT/HCPCS: 99211

== ENCOUNTER 2022-12-31 11:15 | Day surgery (SDC) | payer MEDICARE, OTHER ==
[2022-12-26 15:28] VITALS: BMI 28.1
[~2022-12-31 11:15] MED LIST changes: -LIDOCAINE 1% (10MG/ML) FOR IV START INTRADERMA PRN
[2022-12-31 11:35] VITALS: RESP 18; TEMP 97
[2022-12-31] MEDS ORDERED: IOPAMIDOL M200 10 ML VIAL ONE (12:15)
[2022-12-31] MEDS ORDERED: methylPREDNISolone ACETATE 80 MG/ML 1 ML VIAL ONE (12:15)
--- NOTE | 2022-12-31 12:20 | P.PCN ---
Date of Procedure: 12/31/22 Procedure(s) Performed: PREOPERATIVE DIAGNOSIS: 1- Lumbar Degenerative Disc Diseases 2-Lumbar spondylosis with Facet arthropathy without myelopathy. POSTOPERATIVE DIAGNOSIS: Same as preop diagnosis. PROCEDURE 1. Lumbar epidural steroid injection under fluoroscopic guidance at the L4-5 level. (Fluoroscopy imaging was available in radiology department) 2. Lumbar epidurogram. ANESTHESIA: Local anesthesia with lidocaine 1% 3 mL only EBL: Minimal PROCEDURE INDICATION: The patient with low back pain and radiculitis symptoms unresponsive to conservative treatment. Fluoroscopy was used to optimize visualization of the needle placement and to maximize safety. PROCEDURE DESCRIPTION / TECHNIQUE: The patient was seen and identified in the preoperative area. Risks, benefits, complications including but not limited to infections ,bleeding ,allergic reaction to the medications ,nerve damage and not complete pain releife , and alternatives were discussed with the patient. The patient agreed to proceed with the procedure and signed the consent. IV was started, and vital signs were stable. Patient was taken to the OR and time out was completed. The patient was placed in the prone position on procedure table and a pillow was placed under the abdomen to reduce lumbar lordosis. The lumbosacral area was prepped and draped in the usual sterile fashion.ere closely monitored during the procedure. Vital signs was monitered during the entire procedure. Using anterior-posterior fluoroscopy, the L4-5 interlaminar space was identified and the skin over this site was marked and then infiltrated with 1% lidocaine subcutaneously. Subsequently, a 20-gauge Tuohy epidural needle was inserted and advanced toward the epidural space using the ``Loss of resistance technique and guided by AP and lateral fluoroscopy. The correct needle position in the epidur al space was verified with the injection of 2 mL of the water soluble contrast dye Isovue 200 contrast and observing an excellent epidurogram with the epidural spread of the dye, after negative aspiration for blood and CSF and in the absence of paresthesias. Again after negative aspiration, a 6 ml mixture containing 60 mg of Depo-medrol ( Preservetive Free ), and 2 ml of preservative free Normal Saline, and 2 ml of preservative free lidocaine 1% solution was injected and a washout of epidurogram was seen. Needle was withdrawn intact, skin was cleansed, and bandages were applied. COMPLICATIONS: None DISPOSITION / PLANS: The patient was placed in a supine position and transferred to the recovery area in a stable condition for observation. There was no evidence of lower extremity motor or sensory deficit after the procedure. Patient was discharged from the recovery room after meeting discharge criteria. Home discharge instructions were given to the patient by the staff. The patient was reexamined prior to discharge. The patient will schedule a follow up in the clinic in 2-4 weeks.
--- NOTE | 2022-12-31 12:27 | FL ---
EXAMINATION TYPE: FL guided pain mgmt statistic DATE OF EXAM: 12/31/2022 HISTORY: Fluoroscopy time Total dose area product (DAP) in uGy*m?, mGy*cm? (or similar): 2 seconds IMPRESSION: 1. Fluoroscopy time.
[2022-12-31 12:52] VITALS: BP 144/72; PULSE 58
== END 2022-12-31 12:52 | disposition home or self-care (01) ==
LOC: ORPAIN 11:15
PROVIDERS: ATTEND Specialist
DX: M51.16 Intervertebral disc disorders with radiculopathy, lumbar region (principal); M47.26 Other spondylosis with radiculopathy, lumbar region
CPT/HCPCS: 62323; J1040; Q9966

== ENCOUNTER → 2023-01-23 | Outpatient (CLI) | payer MEDICARE, OTHER ==
[2023-01-23 11:13] VITALS: BP 151/76; PULSE 62; RESP 16; TEMP 98
--- NOTE | 2023-01-23 14:32 | P.PAINPG ---
PQRS Measure Charge Sheet Comment: A 72 yr old male with a history of severe and chronic LBP secondary to lumbar DDD and spondylosis with facet arthropathy without myelopathy presents today for evaluation s/p TRACEE L4-L5 #3. Pt states he experienced 90% pain relief x 3 wks s/p procedure. Pain level is provoked at 2/10 in intensity, constant, localized in the R lower lumbar spine, achy in character w shooting towards the R hip. Pain is provoked by walking/ standing for periods of 10 min or more. Pain is alleviated with PTx 8 wks in Feb 2022, massage therapy weekly x 4 wks in Apr 2022, chiropractic treatments semi weekly x 8 wks in Apr 2022, heat, medications, topical, repositioning and rest. Interventional pain procedures completed include TRACEE L4-L5 x3 Patient is currently on Ibu, Voltaren gel Patient denies any side effects of the medication(s), denies excessive drowsiness or sleepiness, denies suicidal ideation and reports that the current pain medication is helping to control the pain and improve activities of daily living. Patient denies any motor or sensory deficits. Patient denies any fever or night sweats, denies any change in the bowel movements or urination. Physical Examination: -Constitutional: Cooperative. Not in acute distress . - Neurologic: Cranial nerve II to XII intact. No focal neurological deficits. - Psychatric: Alert & oriented x 3. Matching mood & appropriate affect. Judgment and insight intact. - Musculoskeletal: Cervical spine: Muscle bulk/ tone/ strength in the bilateral upper extremities normal Vertebral body tenderness to palpation over Spurling test positive Distraction test positive Facet loading test positive TTP Thoracic spine Muscle bulk / tone/ strength in the bilateral paraspinal muscles normal Vertebral body tender to palpation over Facet loading test positive TTP Lumbar spine: Motor bulk/ tone/ strength lower extremities , thigh and legs : 5/5 Deep tendon reflexes : Normal Knee Jerk. Normal Ankle Jerk . Vertebral body tenderness to palpation Xiao Test positive Lumbar Facet Loading Test positive Straight Leg Raise: positive at 30 degrees right side/ left side Gaenslen's Test positive Sacral spine : Severe tenderness over the Sacroiliac joint: right side / left side Range of motion: Flexion of the lumbar spine <60 degrees Range of motion: Extension of the lumbar spine <20 degrees Gaenslen's Test positive right side / left side Eris test: positive right side / left side Thigh Thrust Test positive right side / left side Sacral Thrust Test positive right side / left side Assessment and plan: Chronic LBP secondary to lumbar DDD, spondylosis with facet arthropathy without myelopathy Will manage residual pain and may return to clinic on an as needed basis. All questions answered. I have spent less than 30 minutes on patient care today. Dr Johnson was available by phone for the evaluation of this patient. The time was used to review the medical records including relevant urine studies and Prescription history (MAPs), review of the available imaging, evaluation and examination of the patient, coordination of care with the medical staff and if applicable referring physicians, as well as creation of the medical record PQRS Narrative: Smoking Status Never smoker Hx Alcohol Use (MH) Yes: SEVERAL DRINKS DAILY Home Medications: Ambulatory Orders Omeprazole 20 mg PO HS 11/03/13 amLODIPine [Norvasc] 10 mg PO QAM 11/03/13 ALPRAZolam [Xanax] 0.25 mg PO HS 02/09/15 Atorvastatin [Lipitor] 40 mg PO HS 05/30/21 ALPRAZolam [Xanax] 0.25 mg PO BID PRN 06/26/22 Docusate [Colace] 100 mg PO TID 06/26/22 Multivitamins, Thera [Multivitamin (formulary)] 1 each PO HS tab 07/02/22 Cholecalciferol [Vitamin D3 (25 Mcg = 1000 Iu)] 50 mcg PO QAM 08/01/22 Metoprolol Tartrate [Lopressor] 25 mg PO BID 08/01/22 Vitamin B Complex 1 each PO QAM 08/29/22 Controlled Substance Measures - Controlled Substance Measures Is patient prescribed a controlled substance at discharge?: No
== END ==
LOC: PNWHC3 10:11
PROVIDERS: ATTEND Specialist
DX: M51.36 Other intervertebral disc degeneration, lumbar region (principal); M47.816 Spondylosis without myelopathy or radiculopathy, lumbar region; G89.29 Other chronic pain; Z79.01 Long term (current) use of anticoagulants
CPT/HCPCS: 99211

== ENCOUNTER 2023-09-19 09:01 | Day surgery (SDC) | payer MEDICARE, OTHER ==
[2023-09-17 13:13] VITALS: BMI 27.3
[2023-09-19] MEDS: LACTATED RINGERS 1,000 ML IV ONE (09:24)
[2023-09-19] MEDS ORDERED: PROPOFOL 10 MG/ML 20 ML VIAL IV ONE (09:59)
[2023-09-19 10:03] VITALS: TEMP 98.1
--- NOTE | 2023-09-19 10:14 | P.PCN ---
Date of Procedure: 09/19/23 Procedure(s) Performed: BRIEF HISTORY: Patient is a 72-year-old pleasant white male scheduled for an elective colonoscopy as a part of screening for colon cancer/positive cologuard PROCEDURE PERFORMED: Colonoscopy With snare polypectomy. PREOPERATIVE DIAGNOSIS: Screening for colon cancer IV sedation per Anesthesia. PROCEDURE: After informed consent was obtained, the patient, was brought into the endoscopy unit. IV sedation was administered by Anesthesia under continuous monitoring. Digital rectal examination was normal. Initially the Olympus CF-160 flexible video colonoscope was then inserted in the rectum, gradually advanced into the cecum without any difficulty. Careful examination was performed as the scope was gradually being withdrawn. Ileocecal valve and the appendiceal orifice were visualized and appeared normal. Prep was excellent. Mucosa of the cecumhad a 5millimeters polyp removed by cold snare polypectomy. Rest of the, ascending colon, transverse colon, appeared normal. In the descending colon there was a 6 minute a polyp that was removed by cold snare polypectomy. The sigmoid colon was another 5 mm polyp removed by cold snare polypectomy. Rest of the descending colon, sigmoid colon, and rectum appeared normal. Retroflexion was performed in the rectum and no lesions were seen. The patient tolerated the procedure well. IMPRESSION: 5 mm cecal polyp status post cold snare polypectomy 6 millimeters descending colon polyp status post snare polypectomy 7 mm sigmoid polyp status post cold snare polypectomy RECOMMENDATIONS: Findings of this examination were discussed with the patient as well as his family. He was advised to follow with the biopsy results. If the biopsy reveals adenoma, he can have a repeat colonoscopy in 5 years.
[2023-09-19 11:31] VITALS: BP 123/78; PULSE 52; RESP 18
== END 2023-09-19 10:59 | disposition home or self-care (01) ==
LOC: ORWHC2ENDO 09:01
PROVIDERS: ATTEND Internal Medicine Gastroenterology
DX: D12.0 Benign neoplasm of cecum (principal); D12.4 Benign neoplasm of descending colon; D12.5 Benign neoplasm of sigmoid colon; I10 Essential (primary) hypertension; E78.5 Hyperlipidemia, unspecified; K21.9 Gastro-esophageal reflux disease without esophagitis; Z85.46 Personal history of malignant neoplasm of prostate; Z79.899 Other long term (current) drug therapy
CPT/HCPCS: 88305; 45385; J2704

== ENCOUNTER → 2024-01-12 | Outpatient (CLI) | payer MEDICARE, OTHER | END | disposition home or self-care (01) | LOC: LABWHC1 11:12 | PROVIDERS: ATTEND Internal Medicine Interventional Cardiology | DX: R53.83 Other fatigue (principal) | CPT/HCPCS: 36415; 84443 ==

== ENCOUNTER → 2024-04-22 | Outpatient (CLI) | payer MEDICARE, OTHER ==
[2024-04-22 19:23] LABS: HCT 38.5 % (39.6-50.0); HGB 13.1 g/dL (13.0-17.0); MCH 31.2 pg (27.0-32.0); MCV 91.7 FL (80.0-97.0); Mean Platelet Volume 10.1 FL (9.5-12.2); NRBC Per 100 WBC 0 X 10*3/uL (0.00-0.01); Platelet Count 292 X 10*3/uL (140-440); RDW 12.3 % (11.5-14.5)
[2024-04-22 20:58] LABS: BUN/Creat Ratio 15.78 Ratio (12.00-20.00); Blood Urea Nitrogen 14.2 mg/dL (9.0-27.0); Calcium 10.1 mg/dL (8.7-10.3); Carbon Dioxide 26.2 mmol/L (21.6-31.8); Chloride 104 mmol/L (96-109); Glucose 91 mg/dL (70-110); Potassium 4.3 mmol/L (3.5-5.5); Sodium 143 mmol/L (135-145)
== END | disposition home or self-care (01) ==
LOC: LABWHC1 14:35
PROVIDERS: ATTEND Internal Medicine Interventional Cardiology
DX: I10 Essential (primary) hypertension (principal); I48.0 Paroxysmal atrial fibrillation
CPT/HCPCS: 36415; 80048; 84443; 85027

== ENCOUNTER → 2024-10-28 | Outpatient (CLI) | payer MEDICARE, OTHER ==
[2024-10-28 12:29] LABS: African American GFR (CKD) 88 (>60 ml/min/1.73 sqM); Blood Urea Nitrogen 15 mg/dL (9-20); Non-African American GFR(CKD) 76 (>60 ml/min/1.73 sqM)
--- NOTE | 2024-10-28 15:48 | CT ---
EXAMINATION TYPE: CT abdomen pelvis w con DATE OF EXAM: 10/28/2024 COMPARISON: 06/26/2022 CLINICAL INDICATION: Male, 74 years old with history of R10.9 UNSPECIFIED ABDOMINAL PAIN; PH[facility], LOWER ABDOMINAL PAIN TECHNIQUE: Performed with Oral Contrast and with IV Contrast, patient injected with 100ml mL of Isovue 300. CT DLP: [address] CTDI: mGy Automated exposure control for dose reduction was used. FINDINGS: The lung bases are clear. The gallbladder is normal without distention, wall thickening, pericholecystic fluid or gallstones. T here is no biliary ductal dilatation. There is a 10 mm hypodensity in the right lobe of the liver which most likely represents a benign cys t or hemangioma. There is no focal mass or organomegaly involving the pancreas, spleen or adrenal gla nds. There is no solid renal mass or hydronephrosis and there is homogeneous contrast enhancement of the r enal parenchyma. There is a 5 mm nonobstructing left renal calculus. The caliber the abdominal aorta is normal is no retroperitoneal adenopathy or hemorrhage. The bowel loops are normal in caliber and there is no evidence of dilatation or obstruction. No infla mmatory changes are identified in the bowel wall or mesentery. There is no free intraperitoneal air or fluid. No pelvic mass, free fluid, abscess or adenopathy. 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 The osseous structures and soft tissues are intact. IMPRESSION: 1. No acute changes within the abdomen or pelvis. 2. 5 mm nonobstructing left renal calculus. 3. Prostatectomy. [facility], Workstation: TC, 10/28/2024 3:45 PM
== END | disposition home or self-care (01) ==
LOC: RADCTMAIN 11:48
PROVIDERS: ATTEND Family Medicine
DX: N20.0 Calculus of kidney (principal); Z90.79 Acquired absence of other genital organ(s)
CPT/HCPCS: 82565; 84520; 74177; Q9967

== ENCOUNTER → 2024-12-06 | Outpatient (CLI) | payer MEDICARE, OTHER ==
--- NOTE | 2024-12-06 11:04 | MR ---
EXAMINATION TYPE: MR lumbar spine wo con DATE OF EXAM: 12/06/2024 10:26 AM COMPARISON: 12/11/2021 CLINICAL INDICATION: Male, 74 years old with history of M51.16, M47.816, M54.50, Rt hip pain TECHNIQUE: Multiplanar, multisequence images of the lumbar spine were acquired without IV contrast. FINDINGS: Vertebral body heights are preserved. Moderate hypertrophic facet arthropathy mid to lower lumbar spine. Degenerative grade 1 retrolisthesis L2-L3, L3-L4, L4-L5. Mild to moderate degenerative disc disease is present with desiccated, mildly narrowed, and bulging d iscs throughout. Tiny posterior annular fissure at L1-L2 and L2-L3. Conus medullaris is normal. Some scattered Modic type I endplate changes present towards the left at L3-L4 and L4-L5. At L1-L2, there is a new central disc protrusion impressing on the ventral thecal sac but not causing any significant spinal canal stenosis. At L4-L5, moderate hypertrophic facet arthropathy with degenerative grade 1 retrolisthesis, and diffu se bulging disc causes similar mild spinal canal narrowing. A moderate left neuroforaminal stenosis h as worsened. Disc material abuts the extraforaminal left L4 nerve root. The [id number] right ne uroforaminal stenosis is similar. Also on the left, similar [id number]-shirqvvy neural foraminal stenosis L3-L4 and mild at L5-S1. On the right, moderate to severe neuroforaminal stenosis at L5-S1 secondary to facet arthropathy and disc osteophyte complex. Mild neural foraminal stenosis at L3-L4. IMPRESSION: 1. [id number] multilevel degenerative disc disease. 2. Moderate hypertrophic facet arthropathy mid to lower lumbar spine. Some edematous Modic type I end plate change towards the left at L3-L4 and L4-L5. 3. Degenerative grade 1 retrolisthesis L2-L3, L3-L4, L4-L5. 4. New central disc herniation at L1-L2 prominently impressing on the thecal sac but not causing any significant spinal canal stenosis. Similar mild spinal canal narrowing at L4-L5. 4. Similar moderate to severe right neural foraminal stenosis at L5-S1. 5. At L4-L5, there is a worsening moderate left foraminal stenosis with disc material abutting the ex traforaminal left L4 nerve root. [facility], , 12/06/2024 11:02 AM
== END | disposition home or self-care (01) ==
LOC: RADMRIMAIN 09:37
PROVIDERS: ATTEND Orthopaedic Surgery
DX: M48.061 Spinal stenosis, lumbar region without neurogenic claudication (principal); M51.16 Intervertebral disc disorders with radiculopathy, lumbar region; M47.26 Other spondylosis with radiculopathy, lumbar region; M43.16 Spondylolisthesis, lumbar region
CPT/HCPCS: 72148